=== PATIENT | female | born 1935 | race Caucasian/White ===

== ENCOUNTER 2020-07-23 17:58 | Inpatient (IN) ==
[2020-07-23] MEDS ORDERED: SODIUM CHLORIDE 0.9% 500 ML IV STA (18:49)
[2020-07-23 19:56] LABS: Basophils % 0.5 % (0.0-0.8); Eosinophils # 0.4 10*3/uL (0.0-0.87); Eosinophils % 5.7 % (0.00-10.9); Hemoglobin 10.3 GM/DL (12.0-16.0); Immature Granulocytes % 0.5 %; Immature Granulocytes Absolute 0.03 #; Lymphocytes # 1.6 10*3/uL (1.4-4.0); Lymphocytes % 23.9 % (21.3-54.2); Mean Corpuscular HGB Conc 32.2 GM/DL (32-36); Mean Corpuscular Volume 96.1 FL (87-102); Mean Platelet Volume 9.7 FL (9.6-12.0); Monocytes % 9.3 % (1.7-12.7); Neutrophils % 60.1 % (38.7-73.9); Platelet Count 181 T/CUMM (130-400); Red Blood Count 3.33 MC/CUMM (3.8-5.5); Red Cell Distribution Width 13.9 % (9.3-17.3); White Blood Count 6.5 T/CUMM (4-12)
[2020-07-23 20:07] LABS: PT Patient Result 10.8 SECS (9.8-11.9)
[2020-07-23 20:28] LABS: Alanine Aminotransferase 21 U/L (13-56); Albumin 3.2 G/DL (3.4-5.0); Alkaline Phosphatase 44 U/L (45-117); Aspartate Amino Transferase 16 U/L (0-37); Blood Urea Nitrogen 27 MG/DL (7-18); Calcium 8.8 MG/DL (8.5-10.1); Carbon Dioxide 26 MMOL/L (21-32); Estimated Glom Filtration Rate 42 ML/MIN; Glucose 117 MG/DL (74-106); Osmolality,Calculated 284.4 MOS/KG (273-304); Potassium 3.9 MMOL/L (3.5-5.1); Sodium 140 MMOL/L (136-145); Total Protein 6.2 G/DL (6.4-8.2); Troponin I < 0.015 NG/ML (0.00-0.045)
[2020-07-23 20:53] LABS: Bacteria,Urine Occasional /HPF (Few); Bilirubin,Urine Negative (Negative); Blood, Urine Negative (Negative); Glucose,Urine (UA) Negative (Negative); Hyaline Casts,Urine 5 /LPF (0-3); Ketones,Urine Negative (Negative); Nitrite,Urine Negative (Negative); Protein,Urine Negative; RBC,Urine 2 /HPF (0-4); Squamous Epithelial Cell,Urine Occasional /HPF (0-10); Urine Appearance CLEAR (Clear); Urine Color Yellow (Yellow); Urine Urobilinogen < 2.0 EU/DL (0.2-1.0); WBC,Urine 15 /HPF (0-6)
[2020-07-23 20:59] LABS: Barbiturates Screen,Urine Negative (Negative); Benzodiazepines Screen,Urine Positive (Negative); Cannabinoid Screen,Urine Negative (Negative); Opiate Screen,Urine Positive (Negative); Phencyclidine Screen,Urine Negative (Negative)
[2020-07-23] MEDS ORDERED: methylPREDNISolone SOD SUC 125 MG/2 ML VIAL IV STA (21:17)
[2020-07-23] MEDS ORDERED: diphenhydrAMINE 50 MG/1 ML VIAL IV STA (21:17)
[2020-07-23] MEDS ORDERED: GLUCAGON 1 MG VIAL IM PRN ×2 (21:40)
[2020-07-23] MEDS ORDERED: DEXTROSE 50% 25 GM/50 ML VIAL IV PRN ×2 (21:40)
[2020-07-23] MEDS ORDERED: diphenhydrAMINE CAP 25 MG CAPSULE PO PRN (21:40)
[2020-07-23] MEDS ORDERED: ACETAMINOPHEN 325 MG TABLET PO PRN (21:40)
[2020-07-23] MEDS ORDERED: ONDANSETRON 4 MG/2 ML VIAL IV PRN (21:40)
[2020-07-23] MEDS ORDERED: BISACODYL 5 MG TABLET PO PRN (21:40)
[2020-07-23] MEDS ORDERED: NICOTINE 21 MG/24 HR PATCH TRANSDERM PRN (21:40)
[2020-07-23] MEDS ORDERED: guaiFENesin/DM ER 600-30 MG TABLET PO PRN (21:40)
[2020-07-23] MEDS ORDERED: ALUMINUM/MAGNES/SIMETH MAX STR 30 ML UDCUP PO PRN (21:40)
[2020-07-23] MEDS ORDERED: hydrALAZINE 20 MG/1 ML VIAL IV PRN (21:40)
[2020-07-23] MEDS ORDERED: SIMETHICONE CHEW 125 MG TABLET PO PRN (21:40)
[2020-07-23] MEDS ORDERED: LEVOFLOXACIN INJ 750 MG in PREMIX 1 EACH IV SCH (22:00)
[2020-07-23] MEDS ORDERED: SODIUM CHLORIDE 0.9% 1,000 ML IV SCH (22:30)
[2020-07-23] MEDS ORDERED: ALBUTEROL/IPRATROPIUM 3 ML NEB RESP TX ONE (23:08)
[2020-07-24 01:06] LABS: Basophils % 0.4 % (0.0-0.8); Eosinophils # 0.1 10*3/uL (0.0-0.87); Eosinophils % 0.7 % (0.00-10.9); Hematocrit 34.8 VOL% (35.7-47.0); Hemoglobin 11.4 GM/DL (12.0-16.0); Immature Granulocytes % 0.4 %; Immature Granulocytes Absolute 0.03 #; Lymphocytes # 0.8 10*3/uL (1.4-4.0); Lymphocytes % 12.2 % (21.3-54.2); Mean Corpuscular HGB Conc 32.8 GM/DL (32-36); Mean Corpuscular Volume 96.1 FL (87-102); Neutrophils % 85.3 % (38.7-73.9); Platelet Count 207 T/CUMM (130-400); Red Blood Count 3.62 MC/CUMM (3.8-5.5); Red Cell Distribution Width 14.1 % (9.3-17.3); White Blood Count 6.7 T/CUMM (4-12)
[2020-07-24 01:08] LABS: Albumin 3.4 G/DL (3.4-5.0); Bilirubin,Total 0.5 MG/DL (0.2-1.0); Osmolality,Calculated 284.7 MOS/KG (273-304); Potassium 3.7 MMOL/L (3.5-5.1); Total Protein 6.4 G/DL (6.4-8.2)
[2020-07-24] MEDS: ALBUTEROL/IPRATROPIUM 3 ML NEB RESP TX SCH ×4 (07:29→21:10)
[2020-07-24] MEDS: LOSARTAN 50 MG TABLET PO SCH (09:04)
[2020-07-24] MEDS: predniSONE 5 MG TABLET PO SCH (09:04)
[2020-07-24] MEDS: PANTOPRAZOLE 40 MG TABLET PO SCH (09:04)
[2020-07-24] MEDS: amLODIPine 10 MG TABLET PO SCH (09:04)
[2020-07-24] MEDS: DULoxetine 30 MG CAPSULE PO SCH (09:04)
[2020-07-24] MEDS: ENOXAPARIN 30 MG/0.3 ML SYRINGE SUBCUT SCH (09:05)
[2020-07-24] MEDS: INSULIN LISPRO 100 UNIT/ML SUBCUT SCH ×4 (09:09→21:19)
[2020-07-24] MEDS: ZALEPLON 5 MG CAPSULE PO PRN (21:13)
[2020-07-25] MEDS: ALBUTEROL/IPRATROPIUM 3 ML NEB RESP TX SCH ×4 (01:36→19:34)
[2020-07-25 05:30] LABS: Basophils % 0.3 % (0.0-0.8); Eosinophils % 0.3 % (0.00-10.9); Hematocrit 31.2 VOL% (35.7-47.0); Hemoglobin 10.2 GM/DL (12.0-16.0); Immature Granulocytes % 0.6 %; Immature Granulocytes Absolute 0.07 #; Lymphocytes # 1.7 10*3/uL (1.4-4.0); Lymphocytes % 14.8 % (21.3-54.2); Mean Corpuscular HGB Conc 32.7 GM/DL (32-36); Mean Corpuscular Volume 96.6 FL (87-102); Mean Platelet Volume 9.7 FL (9.6-12.0); Monocytes % 7.7 % (1.7-12.7); Neutrophils % 76.3 % (38.7-73.9); Platelet Count 200 T/CUMM (130-400); Red Blood Count 3.23 MC/CUMM (3.8-5.5); Red Cell Distribution Width 13.9 % (9.3-17.3); White Blood Count 11.4 T/CUMM (4-12)
[2020-07-25 05:55] LABS: Calcium 8.2 MG/DL (8.5-10.1); Osmolality,Calculated 290.3 MOS/KG (273-304); Potassium 3.4 MMOL/L (3.5-5.1)
[2020-07-25 06:00] LABS: Risk Ratio 2.21; VLDL CHOLESTEROL 14.6 MG/DL
[2020-07-25] MEDS: INSULIN LISPRO 100 UNIT/ML SUBCUT SCH ×4 (09:14→20:43)
[2020-07-25] MEDS: PANTOPRAZOLE 40 MG TABLET PO SCH (09:15)
[2020-07-25] MEDS: LOSARTAN 50 MG TABLET PO SCH (09:15)
[2020-07-25] MEDS: amLODIPine 10 MG TABLET PO SCH (09:15)
[2020-07-25] MEDS: predniSONE 5 MG TABLET PO SCH (09:15)
[2020-07-25] MEDS: DULoxetine 30 MG CAPSULE PO SCH (09:15)
[2020-07-25] MEDS: ENOXAPARIN 30 MG/0.3 ML SYRINGE SUBCUT SCH (09:43)
[2020-07-25] MEDS ORDERED: POTASSIUM CHLORIDE 20 MEQ TABLET PO ONE (09:54)
[2020-07-25] MEDS: ASPIRIN EC 81 MG TABLET PO SCH (11:21)
[2020-07-25] MEDS: ZALEPLON 5 MG CAPSULE PO PRN (20:44)
[2020-07-25] MEDS: CEFUROXIME 500 MG TABLET PO SCH (20:44)
[2020-07-26] MEDS: ALBUTEROL/IPRATROPIUM 3 ML NEB RESP TX SCH ×2 (00:25→07:18)
[2020-07-26 06:03] LABS: Basophils % 0.5 % (0.0-0.8); Eosinophils # 0.3 10*3/uL (0.0-0.87); Eosinophils % 3.5 % (0.00-10.9); Hematocrit 32.9 VOL% (35.7-47.0); Hemoglobin 10.9 GM/DL (12.0-16.0); Immature Granulocytes % 0.5 %; Immature Granulocytes Absolute 0.04 #; Lymphocytes # 2.1 10*3/uL (1.4-4.0); Lymphocytes % 23.3 % (21.3-54.2); Mean Corpuscular HGB Conc 33.1 GM/DL (32-36); Mean Corpuscular Volume 94.8 FL (87-102); Mean Platelet Volume 9.5 FL (9.6-12.0); Monocytes % 8.1 % (1.7-12.7); Neutrophils % 64.1 % (38.7-73.9); Platelet Count 205 T/CUMM (130-400); Red Blood Count 3.47 MC/CUMM (3.8-5.5); Red Cell Distribution Width 14.1 % (9.3-17.3); White Blood Count 8.8 T/CUMM (4-12)
[2020-07-26 06:24] LABS: Calcium 8.8 MG/DL (8.5-10.1); Osmolality,Calculated 283.3 MOS/KG (273-304); Potassium 3.7 MMOL/L (3.5-5.1)
[2020-07-26 07:55] VITALS: BP 160/59
[2020-07-26] MEDS: ENOXAPARIN 30 MG/0.3 ML SYRINGE SUBCUT SCH (08:10)
[2020-07-26] MEDS: PANTOPRAZOLE 40 MG TABLET PO SCH (08:11)
[2020-07-26] MEDS: LOSARTAN 50 MG TABLET PO SCH (08:12)
[2020-07-26] MEDS: DULoxetine 30 MG CAPSULE PO SCH (08:13)
[2020-07-26] MEDS: predniSONE 5 MG TABLET PO SCH (08:13)
[2020-07-26] MEDS: INSULIN LISPRO 100 UNIT/ML SUBCUT SCH (08:14)
[2020-07-26] MEDS: CEFUROXIME 500 MG TABLET PO SCH (08:14)
[2020-07-26] MEDS: ASPIRIN EC 81 MG TABLET PO SCH (08:14)
[2020-07-26] MEDS: amLODIPine 10 MG TABLET PO SCH (08:16)
[2020-07-26] MEDS ORDERED: MULTIVITAMIN (CENTRUM) TABLET PO SCH (09:00)
== END 2020-07-26 10:36 | disposition home health service (06) | DRG 689 ==
LOC: N.ED 17:58 → N.EDINP 17:58 → SUATTDRO 21:40 → N.EDINP 23:55 → N.5E 07-24 00:13
PROVIDERS: ADMIT Internal Medicine; ATTEND Internal Medicine

== ENCOUNTER 2021-02-19 21:44 | Inpatient (IN) ==
[2021-02-19 22:09] LABS: Basophils % 0.4 % (0.0-0.8); Eosinophils # 0.2 10*3/uL (0.0-0.87); Eosinophils % 1.7 % (0.00-10.9); Hematocrit 31.3 VOL% (35.7-47.0); Hemoglobin 10.1 GM/DL (12.0-16.0); Immature Granulocytes % 0.6 %; Immature Granulocytes Absolute 0.06 #; Lymphocytes # 2.2 10*3/uL (1.4-4.0); Mean Corpuscular HGB Conc 32.3 GM/DL (32-36); Mean Corpuscular Volume 93.7 FL (87-102); Monocytes % 7.7 % (1.7-12.7); Neutrophils % 68.6 % (38.7-73.9); Platelet Count 166 T/CUMM (130-400); Red Blood Count 3.34 MC/CUMM (3.8-5.5); Red Cell Distribution Width 14.7 % (9.3-17.3); White Blood Count 10.4 T/CUMM (4-12)
[2021-02-19] MEDS ORDERED: MORPHINE 10 MG/1 ML VIAL IV STA (22:21)
[2021-02-19] MEDS ORDERED: MORPHINE 2 MG/1 ML SYRINGE IV STA (22:22)
[2021-02-19 22:32] LABS: Albumin 3.3 G/DL (3.4-5.0); Bilirubin,Total 0.4 MG/DL (0.20-1.00); Calcium 8.3 MG/DL (8.5-10.1); Osmolality,Calculated 286.5 MOS/KG (273-304); Potassium 4.3 MMOL/L (3.5-5.1); Total Protein 5.8 G/DL (6.4-8.2)
[2021-02-19] MEDS ORDERED: PANTOPRAZOLE 40 MG VIAL IV STA (22:38)
[2021-02-19] MEDS ORDERED: ALUM/MAG/SIMETH/LIDO VISC 1:1 30 ML BOTTLE PO STA (22:38)
[2021-02-19] MEDS ORDERED: SODIUM CHLORIDE 0.9% 500 ML IV STA (22:56)
[2021-02-19] MEDS ORDERED: NITROGLYCERIN SL 0.4 MG TABLET SL PRN (23:06)
[2021-02-19] MEDS ORDERED: METHOCARBAMOL 750 MG TABLET PO PRN (23:07)
[2021-02-19] MEDS ORDERED: DEXTROSE 50% 25 GM/50 ML VIAL IV PRN (23:09)
[2021-02-19] MEDS ORDERED: GLUCAGON 1 MG VIAL IM PRN (23:09)
[2021-02-20] MEDS ORDERED: DEXTROSE 50% 25 GM/50 ML VIAL IV PRN ×3 (00:09→13:42)
[2021-02-20] MEDS ORDERED: ONDANSETRON 4 MG/2 ML VIAL IV PRN (00:09)
[2021-02-20] MEDS ORDERED: ACETAMINOPHEN 325 MG TABLET PO PRN (00:09)
[2021-02-20] MEDS ORDERED: GLUCAGON 1 MG VIAL IM PRN ×3 (00:09→13:42)
[2021-02-20] MEDS ORDERED: MORPHINE 2 MG/1 ML SYRINGE IV PRN (00:09)
[2021-02-20] MEDS ORDERED: guaiFENesin/DM ER 600-30 MG TABLET PO PRN (00:09)
[2021-02-20] MEDS ORDERED: hydrALAZINE 20 MG/1 ML VIAL IV PRN (00:09)
[2021-02-20] MEDS ORDERED: ZALEPLON 5 MG CAPSULE PO PRN (00:09)
[2021-02-20] MEDS ORDERED: diphenhydrAMINE CAP 25 MG CAPSULE PO PRN (00:09)
[2021-02-20] MEDS ORDERED: NICOTINE 21 MG/24 HR PATCH TRANSDERM PRN (00:09)
[2021-02-20] MEDS ORDERED: ALBUTEROL/IPRATROPIUM 3 ML NEB RESP TX PRN (00:09)
[2021-02-20] MEDS ORDERED: DOCUSATE SODIUM 100 MG CAPSULE PO PRN (00:09)
[2021-02-20 05:30] LABS: Basophils % 0.5 % (0.0-0.8); Eosinophils # 0.1 10*3/uL (0.0-0.87); Eosinophils % 1.3 % (0.00-10.9); Hematocrit 33.8 VOL% (35.7-47.0); Hemoglobin 10.8 GM/DL (12.0-16.0); Immature Granulocytes % 0.4 %; Immature Granulocytes Absolute 0.03 #; Lymphocytes # 1.8 10*3/uL (1.4-4.0); Lymphocytes % 20.8 % (21.3-54.2); Mean Corpuscular Volume 94.9 FL (87-102); Mean Platelet Volume 9.8 FL (9.6-12.0); Monocytes % 7.1 % (1.7-12.7); Neutrophils % 69.9 % (38.7-73.9); Platelet Count 179 T/CUMM (130-400); Red Blood Count 3.56 MC/CUMM (3.8-5.5); Red Cell Distribution Width 14.8 % (9.3-17.3); White Blood Count 8.6 T/CUMM (4-12)
[2021-02-20 05:55] LABS: Albumin 3.4 G/DL (3.4-5.0); Bilirubin,Total 0.9 MG/DL (0.20-1.00); Calcium 8.7 MG/DL (8.5-10.1); Osmolality,Calculated 284.4 MOS/KG (273-304); Potassium 4.4 MMOL/L (3.5-5.1); Total Protein 6.2 G/DL (6.4-8.2)
[2021-02-20] MEDS ORDERED: INSULIN LISPRO 100 UNIT/ML SUBCUT SCH (07:30)
[2021-02-20] MEDS ORDERED: MAGNESIUM SULF RIDER 2 GM/50 ML PREMIX IV PRN (07:35)
[2021-02-20] MEDS ORDERED: POTASSIUM CHLORIDE RIDER 10 MEQ/100 ML PREMIX IV PRN (07:35)
[2021-02-20] MEDS ORDERED: ENOXAPARIN 60 MG/0.6 ML SYRINGE SUBCUT SCH (08:30)
[2021-02-20] MEDS ORDERED: amLODIPine 10 MG TABLET PO SCH (09:00)
[2021-02-20] MEDS ORDERED: LOSARTAN 50 MG TABLET PO SCH (09:00)
[2021-02-20] MEDS ORDERED: PANTOPRAZOLE 40 MG TABLET PO SCH (09:00)
[2021-02-20 09:18] LABS: Risk Ratio 2.28; VLDL Cholesterol 17.8 MG/DL
[2021-02-20] MEDS: INSULIN LISPRO 100 UNIT/ML SUBCUT SCH ×3 (11:32→21:51)
[2021-02-20] MEDS: PANTOPRAZOLE 40 MG TABLET PO SCH (11:33)
[2021-02-20] MEDS: ASPIRIN EC 81 MG TABLET PO SCH (11:33)
[2021-02-20] MEDS: DULoxetine 30 MG CAPSULE PO SCH (11:34)
[2021-02-20] MEDS: METOPROLOL TARTRATE 25 MG TABLET PO SCH ×2 (11:34→21:45)
[2021-02-20] MEDS: MULTIVITAMIN (CENTRUM) TABLET PO SCH (11:34)
[2021-02-20] MEDS: PRAZOSIN 1 MG CAPSULE PO SCH ×2 (11:34→21:45)
[2021-02-20] MEDS: GABAPENTIN 100 MG CAPSULE PO SCH ×2 (11:34→21:45)
[2021-02-20] MEDS: CHOLECALCIFEROL 1,000 UNIT TABLET PO SCH (11:35)
[2021-02-20] MEDS: OXYBUTYNIN XL 5 MG TABLET PO SCH (11:39)
[2021-02-20] MEDS: predniSONE 5 MG TABLET PO SCH (11:39)
[2021-02-20] MEDS: FAMOTIDINE 20 MG/2 ML VIAL IV SCH ×2 (11:44→21:45)
[2021-02-20] MEDS: SODIUM CHLORIDE 0.9% 1,000 ML IV SCH (11:48)
[2021-02-20] MEDS ORDERED: DIAZEPAM 5 MG TABLET PO ONE (12:30)
[2021-02-20] MEDS ORDERED: diphenhydrAMINE CAP 50 MG CAPSULE PO ONE (12:30)
[2021-02-20] MEDS ORDERED: VERAPAMIL 5 MG/2 ML VIAL ONE (12:31)
[2021-02-20] MEDS ORDERED: NITROGLYCERIN DRIP 50 MG/250 ML BOTTLE IV ONE (12:31)
[2021-02-20] MEDS ORDERED: fentaNYL 100 MCG/2 ML VIAL ONE (12:43)
[2021-02-20] MEDS ORDERED: MIDAZOLAM 2 MG/2 ML VIAL ONE (12:43)
[2021-02-20] MEDS ORDERED: ENOXAPARIN 30 MG/0.3 ML SYRINGE ONE (13:31)
[2021-02-20 15:12] LABS: Bilirubin,Urine Negative (Negative); Blood, Urine Negative (Negative); Glucose,Urine (UA) Negative (Negative); Ketones,Urine Negative (Negative); Nitrite,Urine Negative (Negative); Protein,Urine Negative; RBC,Urine 2 /HPF (0-4); Urine Appearance CLEAR (Clear); Urine Color Yellow (Yellow); Urine Specific Gravity 1.018 (1.001-1.035); Urine Urobilinogen < 2.0 EU/DL (0.2-1.0)
[2021-02-20] MEDS ORDERED: diphenhydrAMINE CAP 25 MG CAPSULE PO SCH (21:00)
[2021-02-20] MEDS: ATORVASTATIN 40 MG TABLET PO SCH (21:44)
[2021-02-21] MEDS: SODIUM CHLORIDE 0.9% 1,000 ML IV SCH ×3 (04:29→16:25)
[2021-02-21 06:33] LABS: Basophils # 0.1 10*3/uL (0.0-0.2); Basophils % 0.6 % (0.0-0.8); Eosinophils # 0.3 10*3/uL (0.0-0.87); Eosinophils % 2.9 % (0.00-10.9); Hematocrit 32.2 VOL% (35.7-47.0); Hemoglobin 10.1 GM/DL (12.0-16.0); Immature Granulocytes % 0.5 %; Immature Granulocytes Absolute 0.04 #; Lymphocytes # 1.3 10*3/uL (1.4-4.0); Lymphocytes % 15.5 % (21.3-54.2); Mean Corpuscular HGB Conc 31.4 GM/DL (32-36); Mean Corpuscular Volume 95.5 FL (87-102); Mean Platelet Volume 10.7 FL (9.6-12.0); Monocytes % 7.2 % (1.7-12.7); Neutrophils % 73.3 % (38.7-73.9); Platelet Count 165 T/CUMM (130-400); Red Blood Count 3.37 MC/CUMM (3.8-5.5); Red Cell Distribution Width 14.9 % (9.3-17.3); White Blood Count 8.6 T/CUMM (4-12)
[2021-02-21 06:58] LABS: Calcium 8.4 MG/DL (8.5-10.1); Osmolality,Calculated 277.7 MOS/KG (273-304); Potassium 4.2 MMOL/L (3.5-5.1)
[2021-02-21] MEDS ORDERED: ENOXAPARIN 40 MG/0.4 ML SYRINGE SUBCUT SCH (08:00)
[2021-02-21] MEDS: INSULIN LISPRO 100 UNIT/ML SUBCUT SCH ×3 (09:34→17:09)
[2021-02-21] MEDS: PRAZOSIN 1 MG CAPSULE PO SCH ×2 (09:45→21:48)
[2021-02-21] MEDS: ASPIRIN EC 81 MG TABLET PO SCH (09:45)
[2021-02-21] MEDS: DULoxetine 30 MG CAPSULE PO SCH (09:45)
[2021-02-21] MEDS: MULTIVITAMIN (CENTRUM) TABLET PO SCH (09:46)
[2021-02-21] MEDS: OXYBUTYNIN XL 5 MG TABLET PO SCH (09:51)
[2021-02-21] MEDS: CHOLECALCIFEROL 1,000 UNIT TABLET PO SCH (09:51)
[2021-02-21] MEDS: PANTOPRAZOLE 40 MG TABLET PO SCH (09:51)
[2021-02-21] MEDS: GABAPENTIN 100 MG CAPSULE PO SCH ×2 (09:51→21:49)
[2021-02-21] MEDS ORDERED: DEXTROSE 50% 25 GM/50 ML VIAL IV PRN (09:51)
[2021-02-21] MEDS: OLMESARTAN 20 MG TABLET PO SCH (09:51)
[2021-02-21] MEDS: METOPROLOL TARTRATE 25 MG TABLET PO SCH ×2 (09:51→21:49)
[2021-02-21] MEDS ORDERED: GLUCAGON 1 MG VIAL IM PRN (09:51)
[2021-02-21] MEDS ORDERED: SODIUM CHLORIDE 0.9% 1,000 ML IV SCH (10:00)
[2021-02-21] MEDS: ATORVASTATIN 40 MG TABLET PO SCH (21:48)
[2021-02-21] MEDS: CHLORHEXIDINE 0.12% ORAL RINSE 60 ML BOTTLE SWISH/SPIT SCH (21:49)
[2021-02-22 04:22] LABS: ABG Base Excess 2.1 MMOL/L (-2.5-2.5); ABG HCO3 26.2 MMOL/L (20-26); ABG Oxygen Saturation 95.3 % (95-100); ABG PCO2 39.1 MM HG (35-48); ABG PH 7.436 (7.35-7.45); ABG TCO2 23.8 MMOL/L (23-27)
[2021-02-22 04:32] LABS: Basophils % 0.5 % (0.0-0.8); Eosinophils # 0.4 10*3/uL (0.0-0.87); Eosinophils % 4.2 % (0.00-10.9); Hematocrit 32.7 VOL% (35.7-47.0); Hemoglobin 10.5 GM/DL (12.0-16.0); Immature Granulocytes % 0.5 %; Immature Granulocytes Absolute 0.04 #; Lymphocytes # 1.6 10*3/uL (1.4-4.0); Lymphocytes % 17.8 % (21.3-54.2); Mean Corpuscular HGB Conc 32.1 GM/DL (32-36); Mean Corpuscular Volume 94.8 FL (87-102); Mean Platelet Volume 10.2 FL (9.6-12.0); Monocytes % 6.8 % (1.7-12.7); Neutrophils % 70.2 % (38.7-73.9); Platelet Count 159 T/CUMM (130-400); Red Blood Count 3.45 MC/CUMM (3.8-5.5); Red Cell Distribution Width 14.6 % (9.3-17.3); White Blood Count 8.8 T/CUMM (4-12)
[2021-02-22 04:53] LABS: Albumin 2.8 G/DL (3.4-5.0); Bilirubin,Total 0.4 MG/DL (0.20-1.00); Calcium 8.3 MG/DL (8.5-10.1); Potassium 4.1 MMOL/L (3.5-5.1); Total Protein 5.5 G/DL (6.4-8.2)
[2021-02-22] MEDS: SODIUM CHLORIDE 0.9% 1,000 ML IV SCH ×3 (05:52→16:03)
[2021-02-22] MEDS: INSULIN LISPRO 100 UNIT/ML SUBCUT SCH ×4 (05:52→16:04)
[2021-02-22] MEDS: DULoxetine 30 MG CAPSULE PO SCH (08:57)
[2021-02-22] MEDS: OXYBUTYNIN XL 5 MG TABLET PO SCH (08:57)
[2021-02-22] MEDS: OLMESARTAN 20 MG TABLET PO SCH (08:58)
[2021-02-22] MEDS: GABAPENTIN 100 MG CAPSULE PO SCH ×2 (08:58→21:09)
[2021-02-22] MEDS: METOPROLOL TARTRATE 25 MG TABLET PO SCH ×2 (08:58→21:09)
[2021-02-22] MEDS: MULTIVITAMIN (CENTRUM) TABLET PO SCH (08:58)
[2021-02-22] MEDS: PANTOPRAZOLE 40 MG TABLET PO SCH (08:58)
[2021-02-22] MEDS: ASPIRIN EC 81 MG TABLET PO SCH (08:58)
[2021-02-22] MEDS: CHOLECALCIFEROL 1,000 UNIT TABLET PO SCH (08:58)
[2021-02-22] MEDS: PRAZOSIN 1 MG CAPSULE PO SCH ×2 (08:58→21:09)
[2021-02-22] MEDS: predniSONE 5 MG TABLET PO SCH (09:05)
[2021-02-22] MEDS: CHLORHEXIDINE 0.12% ORAL RINSE 60 ML BOTTLE SWISH/SPIT SCH ×2 (09:06→21:13)
[2021-02-22] MEDS ORDERED: ALPRAZolam 0.5 MG TABLET PO PRN (09:33)
[2021-02-22] MEDS: CHLORHEXIDINE 4% SOLN 118 ML BOTTLE TOP SCH ×2 (16:09→21:10)
[2021-02-22] MEDS: ATORVASTATIN 40 MG TABLET PO SCH (21:09)
[2021-02-23] MEDS ORDERED: PAPAVERINE 60 MG/2 ML VIAL ONE (04:22)
[2021-02-23] MEDS ORDERED: VANCOMYCIN 1,000 MG VIAL ONE ×2 (04:22→06:55)
[2021-02-23] MEDS ORDERED: VANCOMYCIN 500 MG VIAL ONE (04:22)
[2021-02-23] MEDS ORDERED: PHENYLEPHRINE DRIP 20 MG/250 ML PREMIX IV ONE (05:25)
[2021-02-23] MEDS ORDERED: LIDOCAINE 2% 5 ML VIAL ONE ×2 (05:42→10:37)
[2021-02-23] MEDS ORDERED: CALCIUM CHLORIDE 1,000 MG/10 ML VIAL IV ONE ×2 (05:42→05:43)
[2021-02-23] MEDS ORDERED: ETOMIDATE 40 MG/20 ML VIAL IV ONE (05:42)
[2021-02-23] MEDS ORDERED: VECURONIUM 10 MG VIAL IV ONE ×4 (05:42)
[2021-02-23] MEDS ORDERED: SUFentanil 250 MCG/5 ML AMP ONE (05:43)
[2021-02-23] MEDS ORDERED: MIDAZOLAM 10 MG/2 ML VIAL ONE (05:43)
[2021-02-23] MEDS ORDERED: SODIUM CHLORIDE 0.9% 250 ML IV ONE (05:51)
[2021-02-23] MEDS ORDERED: LACTATED RINGERS 1,000 ML IV ONE (05:51)
[2021-02-23] MEDS ORDERED: HEPARIN/NACL 0.9% 2 UNITS/ML 1,000 UNIT/500 ML BAG IV ONE (05:51)
[2021-02-23] MEDS ORDERED: SODIUM CHLORIDE 0.9% 1,000 ML IV ONE (05:51)
[2021-02-23] MEDS ORDERED: AMINOCAPROIC ACID 5,000 MG/20 ML VIAL ONE ×4 (05:52)
[2021-02-23] MEDS ORDERED: DIAZEPAM 5 MG TABLET PO ONE (05:56)
[2021-02-23] MEDS: INSULIN LISPRO 100 UNIT/ML SUBCUT SCH ×3 (06:00→13:35)
[2021-02-23] MEDS: SODIUM CHLORIDE 0.9% 1,000 ML IV SCH ×2 (06:01→08:14)
[2021-02-23] MEDS ORDERED: ePHEDrine 50 MG/ML VIAL ONE (06:01)
[2021-02-23 07:20] LABS: Basophils % 0.3 % (0.0-0.8); Eosinophils # 0.3 10*3/uL (0.0-0.87); Eosinophils % 2.8 % (0.00-10.9); Hematocrit 36.1 VOL% (35.7-47.0); Hemoglobin 11.8 GM/DL (12.0-16.0); Immature Granulocytes % 0.7 %; Immature Granulocytes Absolute 0.07 #; Lymphocytes # 1.3 10*3/uL (1.4-4.0); Lymphocytes % 12.8 % (21.3-54.2); Mean Corpuscular HGB Conc 32.7 GM/DL (32-36); Mean Corpuscular Volume 94.8 FL (87-102); Mean Platelet Volume 11.5 FL (9.6-12.0); Monocytes % 5.7 % (1.7-12.7); Neutrophils % 77.7 % (38.7-73.9); Platelet Count 123 T/CUMM (130-400); Red Blood Count 3.81 MC/CUMM (3.8-5.5); Red Cell Distribution Width 14.5 % (9.3-17.3); White Blood Count 9.8 T/CUMM (4-12)
[2021-02-23 07:23] LABS: Calcium 9.1 MG/DL (8.5-10.1); Osmolality,Calculated 283.3 MOS/KG (273-304); Potassium 3.9 MMOL/L (3.5-5.1)
[2021-02-23] MEDS ORDERED: VANCOMYCIN INJ 1,000 MG in SODIUM CHLORIDE 0.9% 250 ML IV ONE (07:30)
[2021-02-23 07:44] LABS: ABG Base Excess 1.1 MMOL/L (-2.5-2.5); ABG HCO3 25.4 MMOL/L (20-26); ABG Oxygen Saturation 99.9 % (95-100); ABG PCO2 35.6 MM HG (35-48); ABG PH 7.451 (7.35-7.45); ABG TCO2 22.6 MMOL/L (23-27); Glucose Heart Surgery 123 MG/DL (74-106); Hematocrit Heart Surgery 29.2 PERCENT (37-47); Hemoglobin Heart Surgery 9.4 G/DL (12.0-16.0); Ionized Calcium Arterial 1.13 MMOL/L (1.21-1.46); PCO2 Patient Temp Arterial 35.6 MMHG; PH Patient Temp Arterial 7.451; Patient Temperature 37 CELCIUS; Potassium Heart/CVR 3.3 MMOL/L (3.5-5.1); Sodium Heart/CVR 143 MMOL/L (135-145)
[2021-02-23 07:50] LABS: Bacteria,Urine Occasional /HPF (Few); Bilirubin,Urine Negative (Negative); Blood, Urine Small mg/dL (Negative); Glucose,Urine (UA) Negative (Negative); Ketones,Urine Negative (Negative); Nitrite,Urine Negative (Negative); Protein,Urine Negative; RBC,Urine 2 /HPF (0-4); Urine Appearance CLEAR (Clear); Urine Color Straw (Yellow); Urine Specific Gravity 1.004 (1.001-1.035); Urine Urobilinogen < 2.0 EU/DL (0.2-1.0)
[2021-02-23 08:05] LABS: Anisocytosis 1+; Macrocytosis Slight; Platelet Estimate Adequate
[2021-02-23] MEDS: OLMESARTAN 20 MG TABLET PO SCH (08:14)
[2021-02-23] MEDS: DULoxetine 30 MG CAPSULE PO SCH (08:14)
[2021-02-23] MEDS: predniSONE 5 MG TABLET PO SCH (08:14)
[2021-02-23] MEDS: PANTOPRAZOLE 40 MG TABLET PO SCH (08:14)
[2021-02-23] MEDS: ASPIRIN EC 81 MG TABLET PO SCH (08:14)
[2021-02-23] MEDS: MULTIVITAMIN (CENTRUM) TABLET PO SCH (08:14)
[2021-02-23] MEDS: CHLORHEXIDINE 4% SOLN 118 ML BOTTLE TOP SCH (08:15)
[2021-02-23] MEDS: GABAPENTIN 100 MG CAPSULE PO SCH (08:15)
[2021-02-23] MEDS: OXYBUTYNIN XL 5 MG TABLET PO SCH (08:15)
[2021-02-23] MEDS: PRAZOSIN 1 MG CAPSULE PO SCH (08:15)
[2021-02-23] MEDS: CHLORHEXIDINE 0.12% ORAL RINSE 60 ML BOTTLE SWISH/SPIT SCH ×2 (08:15→21:22)
[2021-02-23] MEDS: CHOLECALCIFEROL 1,000 UNIT TABLET PO SCH (08:15)
[2021-02-23] MEDS: METOPROLOL TARTRATE 25 MG TABLET PO SCH (08:15)
[2021-02-23] MEDS ORDERED: ALBUMIN 5% 25.0 GM/500 ML VIAL IV ONE (08:17)
[2021-02-23] MEDS ORDERED: POTASSIUM CHLORIDE RIDER 20 MEQ/100 ML PREMIX IV ONE (08:17)
[2021-02-23] MEDS ORDERED: PHENYLEPHRINE DRIP 40 MG/250 ML PREMIX IV ONE (08:17)
[2021-02-23] MEDS ORDERED: MIDAZOLAM 2 MG/2 ML VIAL ONE (08:50)
[2021-02-23 09:06] LABS: Hematocrit Heart Surgery 25.3 PERCENT (37-47); Hemoglobin Heart Surgery 8.1 G/DL (12.0-16.0); PCO2 Patient Temp Venous 34.2 MM HG; PH Patient Temp Venous 7.505; PO2 Patient Temp Venous 38.5 MM HG; Potassium Heart/CVR 3.6 MMOL/L (3.5-5.1); VBG HCO3 27.9 MEQ/L (24-28); VBG Oxygen Saturation 85.2 %; VBG PCO2 39.5 MMHG (41-51); VBG PH 7.46; VBG PO2 47.3 MMHG (17-40); VBG Total CO2 26.2 MMOL/L
[2021-02-23 09:41] LABS: Hematocrit Heart Surgery 25.9 PERCENT (37-47); Hemoglobin Heart Surgery 8.3 G/DL (12.0-16.0); PCO2 Patient Temp Venous 33.2 MM HG; PH Patient Temp Venous 7.51; Potassium Heart/CVR 3.7 MMOL/L (3.5-5.1); VBG Base Excess 3.7 MEQ/L (0-4); VBG HCO3 27.5 MEQ/L (24-28); VBG Oxygen Saturation 86.8 %; VBG PCO2 38.4 MMHG (41-51); VBG PH 7.464; VBG PO2 49.1 MMHG (17-40); VBG Total CO2 25.6 MMOL/L
[2021-02-23] MEDS ORDERED: THROMBIN TOPICAL (RECOMBINANT) 5,000 UNIT VIAL TOP ONE (09:55)
[2021-02-23 10:30] LABS: ABG Base Excess 2.7 MMOL/L (-2.5-2.5); ABG HCO3 26.8 MMOL/L (20-26); ABG Oxygen Saturation 99.9 % (95-100); ABG PCO2 35.7 MM HG (35-48); ABG PH 7.473 (7.35-7.45); ABG TCO2 24.2 MMOL/L (23-27); Glucose Heart Surgery 265 MG/DL (74-106); Hematocrit Heart Surgery 26.4 PERCENT (37-47); Hemoglobin Heart Surgery 8.5 G/DL (12.0-16.0); Ionized Calcium Arterial 1.18 MMOL/L (1.21-1.46); PCO2 Patient Temp Arterial 35.7 MMHG; PH Patient Temp Arterial 7.473; Patient Temperature 37 CELCIUS; Potassium Heart/CVR 3.4 MMOL/L (3.5-5.1); Sodium Heart/CVR 138 MMOL/L (135-145)
[2021-02-23] MEDS ORDERED: SEVOFLURANE 1 UNIT/15 MINUTE INH ONE ×3 (10:35→11:27)
[2021-02-23] MEDS ORDERED: ALBUMIN 25% 25 GM/100 ML VIAL IV ONE (10:37)
[2021-02-23] MEDS ORDERED: MAGNESIUM SULFATE 5 GM/10 ML VIAL IV ONE (10:37)
[2021-02-23] MEDS ORDERED: methylPREDNISolone SOD SUC 1,000 MG/8 ML VIAL ONE (10:38)
[2021-02-23] MEDS ORDERED: HEPARIN 10,000 UNIT/10 ML VIAL ONE (10:38)
[2021-02-23] MEDS ORDERED: DEXTROSE 5% KCL 20 MEQ 20 MEQ/1,000 ML BAG IV ONE (10:38)
[2021-02-23] MEDS ORDERED: PROTAMINE SULFATE 250 MG/25 ML VIAL IV ONE (10:38)
[2021-02-23] MEDS ORDERED: MANNITOL 12.5 GM/50 ML VIAL IV ONE (10:38)
[2021-02-23] MEDS ORDERED: SODIUM BICARBONATE 50 MEQ/50 ML VIAL IV ONE (10:39)
[2021-02-23] MEDS ORDERED: POTASSIUM CHLORIDE 20 MEQ/10 ML VIAL ONE (10:39)
[2021-02-23] MEDS ORDERED: NITROGLYCERIN DRIP 50 MG/250 ML BOTTLE IV ONE (10:39)
[2021-02-23] MEDS ORDERED: PROTAMINE SULFATE 50 MG/5 ML VIAL IV ONE (10:39)
[2021-02-23] MEDS ORDERED: FUROSEMIDE 20 MG/2 ML VIAL ONE (10:39)
[2021-02-23] MEDS: LACTATED RINGERS 250 ML IV PRN ×11 (11:45→19:25)
[2021-02-23] MEDS: SODIUM CHLORIDE 0.45% 1,000 ML IV SCH (11:45)
[2021-02-23] MEDS: ALBUMIN 5% 12.5 GM/250 ML VIAL IV PRN ×4 (12:01→16:46)
[2021-02-23] MEDS ORDERED: MIDAZOLAM 10 MG/2 ML VIAL IV PRN (12:10)
[2021-02-23] MEDS ORDERED: ONDANSETRON 4 MG/2 ML VIAL IV PRN (12:10)
[2021-02-23] MEDS ORDERED: PHENYLEPHRINE DRIP 40 MG/250 ML PREMIX IV PRN (12:10)
[2021-02-23] MEDS ORDERED: INSULIN REGULAR DRIP 100 ML IV SCH (12:10)
[2021-02-23] MEDS ORDERED: MAGNESIUM SULF RIDER 2 GM/50 ML PREMIX IV PRN (12:10)
[2021-02-23] MEDS ORDERED: MIDAZOLAM 2 MG/2 ML VIAL IV PRN (12:10)
[2021-02-23] MEDS ORDERED: INSULIN REGULAR 100 UNIT/ML IV ONE (12:10)
[2021-02-23] MEDS ORDERED: NITROPRUSSIDE 100 MG in DEXTROSE 5% 250 ML IV PRN (12:10)
[2021-02-23] MEDS ORDERED: SODIUM CHLORIDE 0.45% 1,000 ML IV SCH ×2 (12:10)
[2021-02-23] MEDS ORDERED: DEXTROSE 50% 25 GM/50 ML VIAL IV PRN ×2 (12:10)
[2021-02-23] MEDS ORDERED: MAGNESIUM SULF RIDER 4 GM/100 ML PREMIX IV PRN (12:10)
[2021-02-23] MEDS ORDERED: INSULIN REGULAR 100 UNIT/ML IV PRN (12:10)
[2021-02-23] MEDS ORDERED: CALCIUM CHLORIDE 1,000 MG/10 ML SYRINGE IV PRN (12:10)
[2021-02-23] MEDS ORDERED: ACETAMINOPHEN 650 MG SUPP RECTAL PRN (12:10)
[2021-02-23] MEDS ORDERED: VECURONIUM 10 MG VIAL IV PRN ×2 (12:10)
[2021-02-23 12:13] LABS: ABG Base Excess 3.5 MMOL/L (-2.5-2.5); ABG HCO3 27.5 MMOL/L (20-26); ABG Oxygen Saturation 97.7 % (95-100); ABG PH 7.465 (7.35-7.45); ABG TCO2 24.5 MMOL/L (23-27); Glucose Heart Surgery 243 MG/DL (74-106); Hematocrit Heart Surgery 33.4 PERCENT (37-47); Hemoglobin Heart Surgery 10.8 G/DL (12.0-16.0); Potassium Heart/CVR 3.5 MMOL/L (3.5-5.1)
[2021-02-23 12:20] LABS: Basophils % 0.2 % (0.0-0.8); Eosinophils # 0.1 10*3/uL (0.0-0.87); Eosinophils % 0.8 % (0.00-10.9); Hematocrit 31.9 VOL% (35.7-47.0); Hemoglobin 10.7 GM/DL (12.0-16.0); Immature Granulocytes % 0.9 %; Immature Granulocytes Absolute 0.13 #; Lymphocytes # 0.8 10*3/uL (1.4-4.0); Lymphocytes % 5.7 % (21.3-54.2); Mean Corpuscular HGB Conc 33.5 GM/DL (32-36); Mean Corpuscular Volume 89.1 FL (87-102); Mean Platelet Volume 10.1 FL (9.6-12.0); Monocytes % 3.7 % (1.7-12.7); Neutrophils % 88.7 % (38.7-73.9); Platelet Count 116 T/CUMM (130-400); Red Blood Count 3.58 MC/CUMM (3.8-5.5); Red Cell Distribution Width 15.4 % (9.3-17.3)
[2021-02-23 12:22] LABS: White Blood Count 14.9 T/CUMM (4-12)
[2021-02-23 12:31] LABS: INR 1.1; Partial Thromboplastin Time 25.4 SECS (23.8-32.1)
[2021-02-23 12:38] LABS: CKMB % 9.8 %
[2021-02-23 12:41] LABS: High Sensitive Troponin I* 10969.6 ng/L (0-54)
[2021-02-23] MEDS: POTASSIUM CHLORIDE RIDER 20 MEQ/100 ML PREMIX IV PRN ×4 (12:45→21:21)
[2021-02-23 12:49] LABS: Albumin 3.3 G/DL (3.4-5.0); Bilirubin,Total 1.1 MG/DL (0.20-1.00); Calcium 9.2 MG/DL (8.5-10.1); Osmolality,Calculated 286.5 MOS/KG (273-304); Potassium 3.4 MMOL/L (3.5-5.1); Total Protein 5.9 G/DL (6.4-8.2)
[2021-02-23 14:15] LABS: ABG Base Excess 3.5 MMOL/L (-2.5-2.5); ABG HCO3 27.6 MMOL/L (20-26); ABG Oxygen Saturation 98.1 % (95-100); ABG PCO2 35.6 MM HG (35-48); ABG PH 7.486 (7.35-7.45); ABG PO2 98.2 MM HG (80-95); ABG TCO2 24.3 MMOL/L (23-27); Glucose Heart Surgery 223 MG/DL (74-106); Hematocrit Heart Surgery 30.9 PERCENT (37-47); Potassium Heart/CVR 3.7 MMOL/L (3.5-5.1)
[2021-02-23] MEDS: KETOROLAC 15 MG/1 ML VIAL IV SCH ×3 (14:22→23:42)
[2021-02-23] MEDS: POTASSIUM CHLORIDE RIDER 10 MEQ/100 ML PREMIX IV PRN ×3 (15:00→21:52)
[2021-02-23] MEDS: MORPHINE 10 MG/1 ML VIAL IV PRN ×2 (15:02→22:54)
[2021-02-23 17:05] LABS: ABG Base Excess 1.7 MMOL/L (-2.5-2.5); ABG Oxygen Saturation 98.4 % (95-100); ABG PCO2 42.3 MM HG (35-48); ABG PH 7.406 (7.35-7.45); ABG TCO2 24.7 MMOL/L (23-27); Glucose Heart Surgery 169 MG/DL (74-106); Hematocrit Heart Surgery 25.8 PERCENT (37-47); Hemoglobin Heart Surgery 8.3 G/DL (12.0-16.0); Potassium Heart/CVR 3.5 MMOL/L (3.5-5.1)
[2021-02-23 21:05] LABS: ABG Base Excess 3.2 MMOL/L (-2.5-2.5); ABG HCO3 27.4 MMOL/L (20-26); ABG Oxygen Saturation 96.6 % (95-100); ABG PCO2 39.9 MM HG (35-48); ABG PH 7.454 (7.35-7.45); ABG PO2 92.9 MM HG (80-95); ABG TCO2 28.6 MMOL/L (23-27); Glucose Heart Surgery 84 MG/DL (74-106); Hemoglobin Heart Surgery 9.9 G/DL (12.0-16.0); Potassium Heart/CVR 3.8 MMOL/L (3.5-5.1)
[2021-02-23] MEDS ORDERED: FUROSEMIDE 40 MG/4 ML VIAL IV ONE (22:03)
[2021-02-23 22:16] LABS: ABG Base Excess 2.9 MMOL/L (-2.5-2.5); ABG Oxygen Saturation 98.2 % (95-100); ABG PCO2 41.4 MM HG (35-48); Glucose Heart Surgery 141 MG/DL (74-106); Hematocrit Heart Surgery 30.1 PERCENT (37-47); Hemoglobin Heart Surgery 9.7 G/DL (12.0-16.0); Potassium Heart/CVR 5.2 MMOL/L (3.5-5.1)
[2021-02-23] MEDS ORDERED: INSULIN REGULAR 100 UNIT/ML SUBCUT SCH (22:30)
[2021-02-23 23:22] LABS: ABG Base Excess 2.4 MMOL/L (-2.5-2.5); ABG HCO3 26.5 MMOL/L (20-26); ABG Oxygen Saturation 96.2 % (95-100); ABG PCO2 44.4 MM HG (35-48); ABG PH 7.401 (7.35-7.45); ABG PO2 83.6 MM HG (80-95); ABG TCO2 25.1 MMOL/L (23-27); Glucose Heart Surgery 153 MG/DL (74-106); Potassium Heart/CVR 4.6 MMOL/L (3.5-5.1)
[2021-02-23] MEDS: VANCOMYCIN INJ 1,000 MG in SODIUM CHLORIDE 0.9% 250 ML IV SCH (23:42)
[2021-02-23] MEDS: INSULIN REGULAR 100 UNIT/ML SUBCUT SCH (23:42)
[2021-02-24] MEDS: LACTATED RINGERS 250 ML IV PRN (01:45)
[2021-02-24 04:16] LABS: ABG Base Excess 2.5 MMOL/L (-2.5-2.5); ABG HCO3 26.6 MMOL/L (20-26); ABG Oxygen Saturation 97.4 % (95-100); ABG PCO2 44.8 MM HG (35-48); ABG PH 7.399 (7.35-7.45); ABG PO2 92.4 MM HG (80-95); ABG TCO2 25.4 MMOL/L (23-27); Glucose Heart Surgery 127 MG/DL (74-106); Hematocrit Heart Surgery 29.6 PERCENT (37-47); Hemoglobin Heart Surgery 9.6 G/DL (12.0-16.0); Potassium Heart/CVR 4.3 MMOL/L (3.5-5.1)
[2021-02-24] MEDS: INSULIN REGULAR 100 UNIT/ML SUBCUT SCH ×5 (04:17→17:27)
[2021-02-24 04:36] LABS: Basophils % 0.1 % (0.0-0.8); Hematocrit 29.1 VOL% (35.7-47.0); Hemoglobin 9.4 GM/DL (12.0-16.0); Immature Granulocytes % 0.7 %; Immature Granulocytes Absolute 0.12 #; Lymphocytes # 0.7 10*3/uL (1.4-4.0); Lymphocytes % 4.1 % (21.3-54.2); Mean Corpuscular HGB Conc 32.3 GM/DL (32-36); Mean Corpuscular Volume 90.7 FL (87-102); Monocytes % 3.7 % (1.7-12.7); Neutrophils % 91.4 % (38.7-73.9); Platelet Count 95 T/CUMM (130-400); Red Blood Count 3.21 MC/CUMM (3.8-5.5); Red Cell Distribution Width 15.8 % (9.3-17.3); White Blood Count 16.5 T/CUMM (4-12)
[2021-02-24 04:42] LABS: Albumin 3.4 G/DL (3.4-5.0); Bilirubin,Direct 0.24 MG/DL (0.0-0.20); Bilirubin,Total 1.2 MG/DL (0.20-1.00); Calcium 7.9 MG/DL (8.5-10.1); Potassium 4.4 MMOL/L (3.5-5.1); Total Protein 5.7 G/DL (6.4-8.2)
[2021-02-24 04:52] LABS: Lymphocytes 2 % (20-55); Platelet Estimate Decreased; Segmented Neutrophils 96 % (50-85); Total Cells Counted 100
[2021-02-24] MEDS: POTASSIUM CHLORIDE RIDER 20 MEQ/100 ML PREMIX IV PRN (05:01)
[2021-02-24 05:03] LABS: CKMB % 5.8 %
[2021-02-24] MEDS: KETOROLAC 15 MG/1 ML VIAL IV SCH ×3 (05:17→17:43)
[2021-02-24] MEDS: amLODIPine 10 MG TABLET PO SCH (09:00)
[2021-02-24] MEDS: PANTOPRAZOLE 40 MG TABLET PO SCH (09:00)
[2021-02-24] MEDS: METOPROLOL TARTRATE 25 MG TABLET PO SCH ×2 (09:00→20:07)
[2021-02-24] MEDS: CHLORHEXIDINE 0.12% ORAL RINSE 60 ML BOTTLE SWISH/SPIT SCH ×2 (09:00→20:05)
[2021-02-24] MEDS: GABAPENTIN 100 MG CAPSULE PO SCH ×2 (09:00→20:06)
[2021-02-24] MEDS: ASPIRIN EC 81 MG TABLET PO SCH (09:00)
[2021-02-24] MEDS: PRAZOSIN 1 MG CAPSULE PO SCH ×2 (11:09→20:07)
[2021-02-24] MEDS: SODIUM CHLORIDE 0.45% 1,000 ML IV SCH (11:10)
[2021-02-24] MEDS: VANCOMYCIN INJ 1,000 MG in SODIUM CHLORIDE 0.9% 250 ML IV SCH (12:22)
[2021-02-24 13:45] LABS: CKMB % 3.9 %
[2021-02-24 13:53] LABS: High Sensitive Troponin I* 7453.7 ng/L (0-54)
[2021-02-24] MEDS ORDERED: FUROSEMIDE 40 MG/4 ML VIAL IV ONE (17:19)
[2021-02-24] MEDS: ATORVASTATIN 40 MG TABLET PO SCH (20:07)
[2021-02-25] MEDS: VANCOMYCIN INJ 1,000 MG in SODIUM CHLORIDE 0.9% 250 ML IV SCH ×2 (00:08→13:17)
[2021-02-25] MEDS: INSULIN REGULAR 100 UNIT/ML SUBCUT SCH ×4 (00:09→17:29)
[2021-02-25 03:28] LABS: Basophils % 0.1 % (0.0-0.8); Hematocrit 32.1 VOL% (35.7-47.0); Hemoglobin 10.3 GM/DL (12.0-16.0); Immature Granulocytes % 0.9 %; Immature Granulocytes Absolute 0.15 #; Lymphocytes % 5.6 % (21.3-54.2); Mean Corpuscular HGB Conc 32.1 GM/DL (32-36); Mean Platelet Volume 10.9 FL (9.6-12.0); Monocytes % 4.3 % (1.7-12.7); Neutrophils % 89.1 % (38.7-73.9); Platelet Count 101 T/CUMM (130-400); Red Blood Count 3.45 MC/CUMM (3.8-5.5); Red Cell Distribution Width 15.7 % (9.3-17.3); White Blood Count 17.2 T/CUMM (4-12)
[2021-02-25 03:49] LABS: Albumin 3.3 G/DL (3.4-5.0); Bilirubin,Direct 0.18 MG/DL (0.0-0.20); Bilirubin,Total 0.5 MG/DL (0.20-1.00); Calcium 8.1 MG/DL (8.5-10.1); Osmolality,Calculated 284.5 MOS/KG (273-304); Potassium 4.1 MMOL/L (3.5-5.1); Total Protein 5.8 G/DL (6.4-8.2)
[2021-02-25 03:50] LABS: CKMB % 2.8 %; High Sensitive Troponin I* 4524.8 ng/L (0-54)
[2021-02-25] MEDS: POTASSIUM CHLORIDE RIDER 20 MEQ/100 ML PREMIX IV PRN (04:10)
[2021-02-25] MEDS: CHLORHEXIDINE 0.12% ORAL RINSE 60 ML BOTTLE SWISH/SPIT SCH ×2 (09:30→21:28)
[2021-02-25] MEDS: PANTOPRAZOLE 40 MG TABLET PO SCH (09:39)
[2021-02-25] MEDS: amLODIPine 10 MG TABLET PO SCH (09:39)
[2021-02-25] MEDS: ASPIRIN EC 81 MG TABLET PO SCH (09:39)
[2021-02-25] MEDS: GABAPENTIN 100 MG CAPSULE PO SCH ×2 (09:40→21:31)
[2021-02-25] MEDS: METOPROLOL TARTRATE 25 MG TABLET PO SCH ×3 (09:40→21:31)
[2021-02-25] MEDS: PRAZOSIN 1 MG CAPSULE PO SCH ×2 (09:42→21:30)
[2021-02-25] MEDS: SODIUM CHLORIDE 0.45% 1,000 ML IV SCH (12:10)
[2021-02-25] MEDS ORDERED: MAGNESIUM SULF RIDER 2 GM/50 ML PREMIX IV PRN (12:47)
[2021-02-25] MEDS ORDERED: MAGNESIUM HYDROXIDE SUSP 30 ML UDCUP PO PRN (12:47)
[2021-02-25] MEDS ORDERED: DEXTROSE 50% 25 GM/50 ML VIAL IV PRN (12:47)
[2021-02-25] MEDS ORDERED: ONDANSETRON 4 MG/2 ML VIAL IV PRN (12:47)
[2021-02-25] MEDS ORDERED: ZALEPLON 5 MG CAPSULE PO PRN (12:47)
[2021-02-25] MEDS ORDERED: MAGNESIUM SULF RIDER 4 GM/100 ML PREMIX IV PRN (12:47)
[2021-02-25] MEDS ORDERED: ACETAMINOPHEN 325 MG TABLET PO PRN (12:47)
[2021-02-25] MEDS ORDERED: ALUMINUM/MAGNES/SIMETH MAX STR 30 ML UDCUP PO PRN (12:47)
[2021-02-25] MEDS ORDERED: SODIUM CHLOR 0.45% KCL 20 MEQ 20 MEQ/1,000 ML BAG IV SCH (12:47)
[2021-02-25] MEDS ORDERED: GLUCAGON 1 MG VIAL IM PRN (12:47)
[2021-02-25] MEDS ORDERED: hydrALAZINE 20 MG/1 ML VIAL IV PRN (16:49)
[2021-02-25] MEDS: ATORVASTATIN 40 MG TABLET PO SCH (21:30)
[2021-02-26] MEDS: INSULIN REGULAR 100 UNIT/ML SUBCUT SCH ×4 (01:05→17:12)
[2021-02-26 07:17] LABS: Basophils % 0.1 % (0.0-0.8); Eosinophils % 0.1 % (0.00-10.9); Hematocrit 32.8 VOL% (35.7-47.0); Hemoglobin 10.7 GM/DL (12.0-16.0); Immature Granulocytes % 0.8 %; Immature Granulocytes Absolute 0.11 #; Lymphocytes # 0.9 10*3/uL (1.4-4.0); Mean Corpuscular HGB Conc 32.6 GM/DL (32-36); Mean Corpuscular Volume 92.9 FL (87-102); Mean Platelet Volume 11.5 FL (9.6-12.0); Monocytes % 4.9 % (1.7-12.7); Neutrophils % 87.1 % (38.7-73.9); Platelet Count 109 T/CUMM (130-400); Red Blood Count 3.53 MC/CUMM (3.8-5.5); Red Cell Distribution Width 15.2 % (9.3-17.3); White Blood Count 13.4 T/CUMM (4-12)
[2021-02-26 07:38] LABS: Alanine Aminotransferase 27 U/L (13-56); Albumin 2.9 G/DL (3.4-5.0); Alkaline Phosphatase 44 U/L (45-117); Aspartate Amino Transferase 16 U/L (0-37); Bilirubin,Indirect 0.6 MG/DL (0.0-1.0); Blood Urea Nitrogen 35 MG/DL (7-18); Calcium 8.1 MG/DL (8.5-10.1); Carbon Dioxide 28 MMOL/L (21-32); Estimated Glom Filtration Rate 65 ML/MIN; Glucose 112 MG/DL (74-106); Osmolality,Calculated 287.4 MOS/KG (273-304); Potassium 4.3 MMOL/L (3.5-5.1); Sodium 140 MMOL/L (136-145); Total Protein 5.6 G/DL (6.4-8.2)
[2021-02-26] MEDS: METOPROLOL TARTRATE 25 MG TABLET PO SCH ×2 (09:32→21:27)
[2021-02-26] MEDS: amLODIPine 10 MG TABLET PO SCH (09:32)
[2021-02-26] MEDS: ASPIRIN EC 81 MG TABLET PO SCH (09:32)
[2021-02-26] MEDS: GABAPENTIN 100 MG CAPSULE PO SCH ×2 (09:32→21:27)
[2021-02-26] MEDS: DOCUSATE SODIUM 100 MG CAPSULE PO SCH (09:32)
[2021-02-26] MEDS: PRAZOSIN 1 MG CAPSULE PO SCH ×2 (09:33→21:24)
[2021-02-26] MEDS: CHOLECALCIFEROL 1,000 UNIT TABLET PO SCH (09:33)
[2021-02-26] MEDS: PANTOPRAZOLE 40 MG TABLET PO SCH (09:33)
[2021-02-26] MEDS: DULoxetine 30 MG CAPSULE PO SCH (09:33)
[2021-02-26] MEDS: OXYBUTYNIN 5 MG TABLET PO SCH (09:33)
[2021-02-26] MEDS: FERROUS SULFATE 325 MG TABLET PO SCH (09:34)
[2021-02-26] MEDS: CHLORHEXIDINE 0.12% ORAL RINSE 60 ML BOTTLE SWISH/SPIT SCH ×2 (09:38→21:27)
[2021-02-26] MEDS: ATORVASTATIN 40 MG TABLET PO SCH (21:27)
[2021-02-27] MEDS: INSULIN REGULAR 100 UNIT/ML SUBCUT SCH ×5 (01:08→20:16)
[2021-02-27 07:56] LABS: Eosinophils # 0.3 10*3/uL (0.0-0.87); Eosinophils % 2.9 % (0.00-10.9); Hematocrit 30.4 VOL% (35.7-47.0); Hemoglobin 9.7 GM/DL (12.0-16.0); Immature Granulocytes % 0.6 %; Immature Granulocytes Absolute 0.06 #; Lymphocytes # 1.6 10*3/uL (1.4-4.0); Lymphocytes % 16.5 % (21.3-54.2); Mean Corpuscular HGB Conc 31.9 GM/DL (32-36); Mean Corpuscular Volume 93.5 FL (87-102); Mean Platelet Volume 11.4 FL (9.6-12.0); Monocytes % 7.5 % (1.7-12.7); Neutrophils % 72.5 % (38.7-73.9); Platelet Count 126 T/CUMM (130-400); Red Blood Count 3.25 MC/CUMM (3.8-5.5); Red Cell Distribution Width 15.3 % (9.3-17.3); White Blood Count 9.4 T/CUMM (4-12)
[2021-02-27 08:13] LABS: Alanine Aminotransferase 30 U/L (13-56); Albumin 2.7 G/DL (3.4-5.0); Alkaline Phosphatase 43 U/L (45-117); Aspartate Amino Transferase 15 U/L (0-37); Bilirubin,Indirect 0.3 MG/DL (0.0-1.0); Blood Urea Nitrogen 38 MG/DL (7-18); Calcium 7.7 MG/DL (8.5-10.1); Carbon Dioxide 29 MMOL/L (21-32); Estimated Glom Filtration Rate 55 ML/MIN; Glucose 97 MG/DL (74-106); Osmolality,Calculated 291.1 MOS/KG (273-304); Potassium 3.9 MMOL/L (3.5-5.1); Sodium 142 MMOL/L (136-145); Total Protein 5.1 G/DL (6.4-8.2)
[2021-02-27] MEDS: ASPIRIN EC 81 MG TABLET PO SCH (08:15)
[2021-02-27] MEDS: OXYBUTYNIN 5 MG TABLET PO SCH (08:15)
[2021-02-27] MEDS: METOPROLOL TARTRATE 25 MG TABLET PO SCH ×2 (08:15→21:23)
[2021-02-27] MEDS: DOCUSATE SODIUM 100 MG CAPSULE PO SCH (08:15)
[2021-02-27] MEDS: FERROUS SULFATE 325 MG TABLET PO SCH (08:15)
[2021-02-27] MEDS: PANTOPRAZOLE 40 MG TABLET PO SCH (08:16)
[2021-02-27] MEDS: CHOLECALCIFEROL 1,000 UNIT TABLET PO SCH (08:16)
[2021-02-27] MEDS: GABAPENTIN 100 MG CAPSULE PO SCH ×2 (08:16→21:23)
[2021-02-27] MEDS: amLODIPine 10 MG TABLET PO SCH (08:16)
[2021-02-27] MEDS: PRAZOSIN 1 MG CAPSULE PO SCH ×2 (08:17→21:23)
[2021-02-27] MEDS: CHLORHEXIDINE 0.12% ORAL RINSE 60 ML BOTTLE SWISH/SPIT SCH ×2 (08:18→21:21)
[2021-02-27] MEDS: DULoxetine 30 MG CAPSULE PO SCH (08:18)
[2021-02-27] MEDS: FUROSEMIDE 40 MG/4 ML VIAL IV SCH (12:20)
[2021-02-27] MEDS: ATORVASTATIN 40 MG TABLET PO SCH (21:23)
[2021-02-28 05:31] LABS: Basophils % 0.1 % (0.0-0.8); Eosinophils # 0.2 10*3/uL (0.0-0.87); Eosinophils % 1.7 % (0.00-10.9); Hematocrit 30.6 VOL% (35.7-47.0); Hemoglobin 9.8 GM/DL (12.0-16.0); Immature Granulocytes % 0.7 %; Lymphocytes # 1.1 10*3/uL (1.4-4.0); Lymphocytes % 7.7 % (21.3-54.2); Mean Corpuscular Volume 93.9 FL (87-102); Neutrophils % 85.8 % (38.7-73.9); Platelet Count 129 T/CUMM (130-400); Red Blood Count 3.26 MC/CUMM (3.8-5.5); Red Cell Distribution Width 15.4 % (9.3-17.3); White Blood Count 13.7 T/CUMM (4-12)
[2021-02-28 05:57] LABS: Albumin 2.6 G/DL (3.4-5.0); Bilirubin,Direct 0.19 MG/DL (0.0-0.20); Bilirubin,Indirect 1.1 MG/DL (0.0-1.0); Bilirubin,Total 1.3 MG/DL (0.20-1.00); Calcium 7.8 MG/DL (8.5-10.1); Osmolality,Calculated 291.3 MOS/KG (273-304)
[2021-02-28] MEDS: GABAPENTIN 100 MG CAPSULE PO SCH ×2 (08:19→21:40)
[2021-02-28] MEDS: METOPROLOL TARTRATE 25 MG TABLET PO SCH ×2 (08:20→21:40)
[2021-02-28] MEDS: OXYBUTYNIN 5 MG TABLET PO SCH (08:20)
[2021-02-28] MEDS: CHOLECALCIFEROL 1,000 UNIT TABLET PO SCH (08:20)
[2021-02-28] MEDS: ASPIRIN EC 81 MG TABLET PO SCH (08:21)
[2021-02-28] MEDS: PANTOPRAZOLE 40 MG TABLET PO SCH (08:21)
[2021-02-28] MEDS: FERROUS SULFATE 325 MG TABLET PO SCH (08:21)
[2021-02-28] MEDS: DOCUSATE SODIUM 100 MG CAPSULE PO SCH (08:21)
[2021-02-28] MEDS: amLODIPine 10 MG TABLET PO SCH (08:21)
[2021-02-28] MEDS: PRAZOSIN 1 MG CAPSULE PO SCH ×2 (08:24→21:40)
[2021-02-28] MEDS: FUROSEMIDE 40 MG/4 ML VIAL IV SCH (08:24)
[2021-02-28] MEDS: CHLORHEXIDINE 0.12% ORAL RINSE 60 ML BOTTLE SWISH/SPIT SCH ×2 (08:28→21:42)
[2021-02-28] MEDS: INSULIN REGULAR 100 UNIT/ML SUBCUT SCH ×4 (08:28→21:39)
[2021-02-28] MEDS: DULoxetine 30 MG CAPSULE PO SCH (09:55)
[2021-02-28] MEDS: ATORVASTATIN 40 MG TABLET PO SCH (21:40)
[2021-03-01 04:36] LABS: Basophils % 0.2 % (0.0-0.8); Eosinophils # 0.4 10*3/uL (0.0-0.87); Eosinophils % 3.5 % (0.00-10.9); Hematocrit 30.3 VOL% (35.7-47.0); Hemoglobin 9.7 GM/DL (12.0-16.0); Immature Granulocytes % 0.7 %; Immature Granulocytes Absolute 0.08 #; Lymphocytes # 1.3 10*3/uL (1.4-4.0); Lymphocytes % 11.7 % (21.3-54.2); Mean Corpuscular Volume 92.7 FL (87-102); Mean Platelet Volume 10.9 FL (9.6-12.0); Monocytes % 5.8 % (1.7-12.7); Neutrophils % 78.1 % (38.7-73.9); Platelet Count 143 T/CUMM (130-400); Red Blood Count 3.27 MC/CUMM (3.8-5.5); Red Cell Distribution Width 15.3 % (9.3-17.3); White Blood Count 11.5 T/CUMM (4-12)
[2021-03-01 04:55] LABS: Alanine Aminotransferase 21 U/L (13-56); Albumin 2.6 G/DL (3.4-5.0); Alkaline Phosphatase 45 U/L (45-117); Aspartate Amino Transferase 14 U/L (0-37); Bilirubin,Indirect 0.6 MG/DL (0.0-1.0); Blood Urea Nitrogen 32 MG/DL (7-18); Calcium 7.9 MG/DL (8.5-10.1); Carbon Dioxide 29 MMOL/L (21-32); Estimated Glom Filtration Rate 63 ML/MIN; Glucose 85 MG/DL (74-106); Osmolality,Calculated 286.3 MOS/KG (273-304); Potassium 3.3 MMOL/L (3.5-5.1); Sodium 141 MMOL/L (136-145); Total Protein 5.1 G/DL (6.4-8.2)
[2021-03-01] MEDS: DOCUSATE SODIUM 100 MG CAPSULE PO SCH (08:54)
[2021-03-01] MEDS: POTASSIUM CHLORIDE 20 MEQ TABLET PO PRN ×3 (08:54→22:16)
[2021-03-01] MEDS: CHOLECALCIFEROL 1,000 UNIT TABLET PO SCH (08:55)
[2021-03-01] MEDS: METOPROLOL TARTRATE 25 MG TABLET PO SCH ×2 (08:55→20:39)
[2021-03-01] MEDS: ASPIRIN EC 81 MG TABLET PO SCH (08:55)
[2021-03-01] MEDS: amLODIPine 10 MG TABLET PO SCH (08:55)
[2021-03-01] MEDS: FERROUS SULFATE 325 MG TABLET PO SCH (08:55)
[2021-03-01] MEDS: GABAPENTIN 100 MG CAPSULE PO SCH ×2 (08:55→20:39)
[2021-03-01] MEDS: PANTOPRAZOLE 40 MG TABLET PO SCH (08:55)
[2021-03-01] MEDS: FUROSEMIDE 40 MG/4 ML VIAL IV SCH (08:55)
[2021-03-01] MEDS: OXYBUTYNIN 5 MG TABLET PO SCH (09:02)
[2021-03-01] MEDS: PRAZOSIN 1 MG CAPSULE PO SCH ×2 (09:03→20:40)
[2021-03-01] MEDS: CHLORHEXIDINE 0.12% ORAL RINSE 60 ML BOTTLE SWISH/SPIT SCH ×2 (09:03→20:40)
[2021-03-01] MEDS: INSULIN REGULAR 100 UNIT/ML SUBCUT SCH ×4 (10:04→20:39)
[2021-03-01] MEDS: DULoxetine 30 MG CAPSULE PO SCH (10:04)
[2021-03-01] MEDS: ATORVASTATIN 40 MG TABLET PO SCH (20:39)
[2021-03-02 05:37] LABS: Basophils % 0.3 % (0.0-0.8); Eosinophils # 0.6 10*3/uL (0.0-0.87); Eosinophils % 5.5 % (0.00-10.9); Hematocrit 29.6 VOL% (35.7-47.0); Hemoglobin 9.6 GM/DL (12.0-16.0); Immature Granulocytes % 0.8 %; Immature Granulocytes Absolute 0.09 #; Lymphocytes # 1.2 10*3/uL (1.4-4.0); Lymphocytes % 11.1 % (21.3-54.2); Mean Corpuscular HGB Conc 32.4 GM/DL (32-36); Mean Corpuscular Volume 92.5 FL (87-102); Mean Platelet Volume 10.7 FL (9.6-12.0); Monocytes % 7.1 % (1.7-12.7); Neutrophils % 75.2 % (38.7-73.9); Platelet Count 149 T/CUMM (130-400); Red Cell Distribution Width 15.4 % (9.3-17.3); White Blood Count 10.9 T/CUMM (4-12)
[2021-03-02 06:03] LABS: Alanine Aminotransferase 21 U/L (13-56); Albumin 2.5 G/DL (3.4-5.0); Alkaline Phosphatase 44 U/L (45-117); Aspartate Amino Transferase 14 U/L (0-37); Bilirubin,Indirect 0.7 MG/DL (0.0-1.0); Blood Urea Nitrogen 32 MG/DL (7-18); Calcium 8.1 MG/DL (8.5-10.1); Carbon Dioxide 27 MMOL/L (21-32); Estimated Glom Filtration Rate 42 ML/MIN; Glucose 103 MG/DL (74-106); Potassium 4.1 MMOL/L (3.5-5.1); Sodium 143 MMOL/L (136-145); Total Protein 5.3 G/DL (6.4-8.2)
[2021-03-02] MEDS: INSULIN REGULAR 100 UNIT/ML SUBCUT SCH ×2 (08:05→11:46)
[2021-03-02] MEDS: PANTOPRAZOLE 40 MG TABLET PO SCH (09:58)
[2021-03-02] MEDS: CHOLECALCIFEROL 1,000 UNIT TABLET PO SCH (09:58)
[2021-03-02] MEDS: DOCUSATE SODIUM 100 MG CAPSULE PO SCH (09:58)
[2021-03-02] MEDS: GABAPENTIN 100 MG CAPSULE PO SCH (09:58)
[2021-03-02] MEDS: DULoxetine 30 MG CAPSULE PO SCH (09:58)
[2021-03-02] MEDS: FERROUS SULFATE 325 MG TABLET PO SCH (09:59)
[2021-03-02] MEDS: OXYBUTYNIN 5 MG TABLET PO SCH (09:59)
[2021-03-02] MEDS: PRAZOSIN 1 MG CAPSULE PO SCH (09:59)
[2021-03-02] MEDS: ASPIRIN EC 81 MG TABLET PO SCH (09:59)
[2021-03-02] MEDS: METOPROLOL TARTRATE 25 MG TABLET PO SCH (09:59)
[2021-03-02] MEDS: FUROSEMIDE 40 MG/4 ML VIAL IV SCH (10:00)
[2021-03-02] MEDS: CHLORHEXIDINE 0.12% ORAL RINSE 60 ML BOTTLE SWISH/SPIT SCH (10:03)
[2021-03-02] MEDS: amLODIPine 10 MG TABLET PO SCH (10:03)
[2021-03-02 12:42] VITALS: BP 138/53
== END 2021-03-02 13:14 | disposition home health service (06) | DRG 234 ==
LOC: EDBD → EDUNIT# → N.ED 21:44 → N.EDINP 21:44 → SUATTDRO 02-20 00:09 → N.EDINP 02-20 01:09 → N.TELES 02-20 02:23 → SUATTDRO 02-20 09:44 → N.CVR 02-23 11:27 → N.TELES 02-25 18:36
PROVIDERS: ADMIT Internal Medicine; ATTEND Internal Medicine Geriatric Medicine

== ENCOUNTER 2021-03-08 15:51 | Inpatient (IN) ==
[2021-03-08 16:33] LABS: Basophils # 0.1 10*3/uL (0.0-0.2); Basophils % 0.4 % (0.0-0.8); Eosinophils # 0.1 10*3/uL (0.0-0.87); Hematocrit 30.9 VOL% (35.7-47.0); Immature Granulocytes % 0.8 %; Immature Granulocytes Absolute 0.11 #; Lymphocytes # 1.1 10*3/uL (1.4-4.0); Lymphocytes % 8.1 % (21.3-54.2); Mean Corpuscular HGB Conc 32.4 GM/DL (32-36); Mean Corpuscular Volume 91.2 FL (87-102); Mean Platelet Volume 9.5 FL (9.6-12.0); Monocytes % 5.1 % (1.7-12.7); Neutrophils % 84.6 % (38.7-73.9); Platelet Count 259 T/CUMM (130-400); Red Blood Count 3.39 MC/CUMM (3.8-5.5); White Blood Count 13.9 T/CUMM (4-12)
[2021-03-08 17:00] LABS: INR 1.1; PT Patient Result 12.1 SECS (10.5-12.0)
[2021-03-08 17:18] LABS: Albumin 3.1 G/DL (3.4-5.0); Bilirubin,Total 0.6 MG/DL (0.20-1.00); Calcium 8.4 MG/DL (8.5-10.1); Potassium 3.5 MMOL/L (3.5-5.1); Total Protein 5.7 G/DL (6.4-8.2)
[2021-03-08] MEDS ORDERED: CEFEPIME 1,000 MG in SODIUM CHLORIDE 0.9% 100 ML IV STA (17:51)
[2021-03-08] MEDS ORDERED: FUROSEMIDE 40 MG/4 ML VIAL IV STA (17:51)
[2021-03-08] MEDS ORDERED: ONDANSETRON 4 MG/2 ML VIAL IV PRN (17:55)
[2021-03-08] MEDS ORDERED: ACETAMINOPHEN 325 MG TABLET PO PRN (17:55)
[2021-03-08] MEDS: CEFEPIME 1,000 MG in SODIUM CHLORIDE 0.9% 100 ML IV SCH (18:18)
[2021-03-08] MEDS ORDERED: ATORVASTATIN 40 MG TABLET PO SCH (21:00)
[2021-03-08] MEDS: GABAPENTIN 100 MG CAPSULE PO SCH (21:19)
[2021-03-08] MEDS: METOPROLOL TARTRATE 25 MG TABLET PO SCH (21:19)
[2021-03-09] MEDS: CEFEPIME 1,000 MG in SODIUM CHLORIDE 0.9% 100 ML IV SCH ×3 (02:14→18:05)
[2021-03-09 04:26] LABS: Basophils # 0.1 10*3/uL (0.0-0.2); Basophils % 0.4 % (0.0-0.8); Eosinophils # 0.4 10*3/uL (0.0-0.87); Eosinophils % 3.8 % (0.00-10.9); Hematocrit 31.7 VOL% (35.7-47.0); Hemoglobin 10.2 GM/DL (12.0-16.0); Immature Granulocytes % 0.6 %; Immature Granulocytes Absolute 0.07 #; Lymphocytes # 1.2 10*3/uL (1.4-4.0); Lymphocytes % 10.6 % (21.3-54.2); Mean Corpuscular HGB Conc 32.2 GM/DL (32-36); Mean Corpuscular Volume 91.9 FL (87-102); Mean Platelet Volume 9.9 FL (9.6-12.0); Monocytes % 6.2 % (1.7-12.7); Neutrophils % 78.4 % (38.7-73.9); Platelet Count 267 T/CUMM (130-400); Red Blood Count 3.45 MC/CUMM (3.8-5.5); Red Cell Distribution Width 15.2 % (9.3-17.3); White Blood Count 11.2 T/CUMM (4-12)
[2021-03-09 04:44] LABS: Albumin 2.7 G/DL (3.4-5.0); Bilirubin,Total 0.8 MG/DL (0.20-1.00); Calcium 8.2 MG/DL (8.5-10.1); Osmolality,Calculated 279.7 MOS/KG (273-304); Potassium 3.2 MMOL/L (3.5-5.1); Total Protein 5.8 G/DL (6.4-8.2)
[2021-03-09] MEDS ORDERED: predniSONE 5 MG TABLET PO SCH (09:00)
[2021-03-09] MEDS: FUROSEMIDE 20 MG TABLET PO SCH (09:13)
[2021-03-09] MEDS: ASPIRIN CHEW 81 MG TABLET PO SCH (09:13)
[2021-03-09] MEDS: PANTOPRAZOLE 40 MG TABLET PO SCH (09:13)
[2021-03-09] MEDS: POTASSIUM CHLORIDE 20 MEQ TABLET PO SCH (09:13)
[2021-03-09] MEDS: GABAPENTIN 100 MG CAPSULE PO SCH ×2 (09:13→21:02)
[2021-03-09] MEDS: METOPROLOL TARTRATE 25 MG TABLET PO SCH (09:13)
[2021-03-09] MEDS: amLODIPine 10 MG TABLET PO SCH (09:13)
[2021-03-09] MEDS: OXYBUTYNIN 5 MG TABLET PO SCH (09:13)
[2021-03-09] MEDS ORDERED: GLUCAGON 1 MG VIAL IM PRN (12:13)
[2021-03-09] MEDS ORDERED: DEXTROSE 50% 25 GM/50 ML SYRINGE IV PRN (12:17)
[2021-03-09] MEDS: INSULIN REGULAR 100 UNIT/ML SUBCUT SCH ×2 (15:46→20:42)
[2021-03-09] MEDS: LEVALBUTEROL 0.63 MG/3 ML NEB RESP TX SCH (20:10)
[2021-03-09] MEDS: SOTALOL 80 MG TABLET PO SCH (21:02)
[2021-03-09] MEDS: ASCORBIC ACID 500 MG TABLET PO SCH (21:02)
[2021-03-10] MEDS: LEVALBUTEROL 0.63 MG/3 ML NEB RESP TX SCH ×5 (01:11→20:18)
[2021-03-10] MEDS: CEFEPIME 1,000 MG in SODIUM CHLORIDE 0.9% 100 ML IV SCH ×3 (01:50→19:08)
[2021-03-10 07:11] LABS: Basophils # 0.1 10*3/uL (0.0-0.2); Basophils % 0.7 % (0.0-0.8); Eosinophils # 0.7 10*3/uL (0.0-0.87); Eosinophils % 5.1 % (0.00-10.9); Hemoglobin 10.7 GM/DL (12.0-16.0); Immature Granulocytes % 0.7 %; Lymphocytes # 0.8 10*3/uL (1.4-4.0); Lymphocytes % 5.9 % (21.3-54.2); Mean Corpuscular HGB Conc 31.5 GM/DL (32-36); Mean Corpuscular Volume 92.6 FL (87-102); Mean Platelet Volume 9.4 FL (9.6-12.0); Monocytes % 3.7 % (1.7-12.7); Neutrophils % 83.9 % (38.7-73.9); Platelet Count 282 T/CUMM (130-400); Red Blood Count 3.67 MC/CUMM (3.8-5.5); White Blood Count 13.6 T/CUMM (4-12)
[2021-03-10] MEDS: INSULIN REGULAR 100 UNIT/ML SUBCUT SCH ×4 (07:47→20:36)
[2021-03-10] MEDS ORDERED: ZALEPLON 5 MG CAPSULE PO PRN (09:24)
[2021-03-10] MEDS: ASCORBIC ACID 500 MG TABLET PO SCH ×2 (09:30→21:40)
[2021-03-10] MEDS: GABAPENTIN 100 MG CAPSULE PO SCH ×2 (09:30→21:43)
[2021-03-10] MEDS: FUROSEMIDE 20 MG TABLET PO SCH (09:30)
[2021-03-10] MEDS: OXYBUTYNIN 5 MG TABLET PO SCH (09:30)
[2021-03-10] MEDS: SOTALOL 80 MG TABLET PO SCH ×2 (09:30→21:46)
[2021-03-10] MEDS: POTASSIUM CHLORIDE 20 MEQ TABLET PO SCH ×2 (09:30→21:44)
[2021-03-10] MEDS: ASPIRIN CHEW 81 MG TABLET PO SCH (09:30)
[2021-03-10] MEDS: amLODIPine 10 MG TABLET PO SCH (09:30)
[2021-03-10] MEDS: PANTOPRAZOLE 40 MG TABLET PO SCH (09:31)
[2021-03-10] MEDS: VANCOMYCIN INJ 1,000 MG in SODIUM CHLORIDE 0.9% 250 ML IV SCH (09:37)
[2021-03-10] MEDS: methylPREDNISolone SOD SUC 40 MG/1 ML VIAL IV SCH ×2 (09:37→21:58)
[2021-03-10 11:32] LABS: Calcium 8.3 MG/DL (8.5-10.1); Osmolality,Calculated 273.1 MOS/KG (273-304); Potassium 3.9 MMOL/L (3.5-5.1)
[2021-03-10] MEDS: FUROSEMIDE 40 MG/4 ML VIAL IV SCH (16:18)
[2021-03-11] MEDS: CEFEPIME 1,000 MG in SODIUM CHLORIDE 0.9% 100 ML IV SCH ×2 (01:23→10:53)
[2021-03-11] MEDS: LEVALBUTEROL 0.63 MG/3 ML NEB RESP TX SCH ×4 (01:30→18:36)
[2021-03-11] MEDS: VANCOMYCIN INJ 1,000 MG in SODIUM CHLORIDE 0.9% 250 ML IV SCH (02:26)
[2021-03-11 05:16] LABS: Basophils % 0.2 % (0.0-0.8); Hematocrit 33.6 VOL% (35.7-47.0); Hemoglobin 10.8 GM/DL (12.0-16.0); Immature Granulocytes Absolute 0.11 #; Lymphocytes # 0.7 10*3/uL (1.4-4.0); Lymphocytes % 6.1 % (21.3-54.2); Mean Corpuscular HGB Conc 32.1 GM/DL (32-36); Mean Corpuscular Volume 91.3 FL (87-102); Mean Platelet Volume 9.6 FL (9.6-12.0); Monocytes % 0.9 % (1.7-12.7); Neutrophils % 91.8 % (38.7-73.9); Platelet Count 329 T/CUMM (130-400); Red Blood Count 3.68 MC/CUMM (3.8-5.5); Red Cell Distribution Width 14.6 % (9.3-17.3); White Blood Count 10.7 T/CUMM (4-12)
[2021-03-11 05:42] LABS: Calcium 8.2 MG/DL (8.5-10.1); Osmolality,Calculated 274.1 MOS/KG (273-304); Potassium 3.7 MMOL/L (3.5-5.1)
[2021-03-11 05:50] LABS: Hypochromasia Slight; Lymphocytes 4 % (20-55); Microcytosis Slight; Ovalocytes Slight; Platelet Estimate Adequate; Segmented Neutrophils 95 % (50-85); Total Cells Counted 100
[2021-03-11] MEDS: INSULIN REGULAR 100 UNIT/ML SUBCUT SCH ×3 (09:06→17:18)
[2021-03-11] MEDS: SOTALOL 80 MG TABLET PO SCH ×2 (09:07→21:28)
[2021-03-11] MEDS: OXYBUTYNIN 5 MG TABLET PO SCH (09:07)
[2021-03-11] MEDS: amLODIPine 10 MG TABLET PO SCH (09:07)
[2021-03-11] MEDS: POTASSIUM CHLORIDE 20 MEQ TABLET PO SCH ×2 (09:08→21:28)
[2021-03-11] MEDS: GABAPENTIN 100 MG CAPSULE PO SCH ×2 (09:08→21:28)
[2021-03-11] MEDS: ASPIRIN CHEW 81 MG TABLET PO SCH (09:08)
[2021-03-11] MEDS: PANTOPRAZOLE 40 MG TABLET PO SCH (09:08)
[2021-03-11] MEDS: FUROSEMIDE 40 MG/4 ML VIAL IV SCH ×2 (09:08→17:17)
[2021-03-11] MEDS: methylPREDNISolone SOD SUC 40 MG/1 ML VIAL IV SCH (09:08)
[2021-03-11] MEDS: ASCORBIC ACID 500 MG TABLET PO SCH ×2 (09:09→21:28)
[2021-03-11] MEDS: CLORAZEPATE 3.75 MG TABLET PO PRN (10:53)
[2021-03-11] MEDS: hydrALAZINE 25 MG TABLET PO SCH ×2 (17:17→21:28)
[2021-03-12] MEDS: LEVALBUTEROL 0.63 MG/3 ML NEB RESP TX SCH ×4 (00:12→19:54)
[2021-03-12] MEDS: CEFEPIME 1,000 MG in SODIUM CHLORIDE 0.9% 100 ML IV SCH ×3 (05:30→10:15)
[2021-03-12] MEDS: INSULIN REGULAR 100 UNIT/ML SUBCUT SCH ×5 (05:30→23:05)
[2021-03-12] MEDS: VANCOMYCIN INJ 1,000 MG in SODIUM CHLORIDE 0.9% 250 ML IV SCH ×2 (05:31→15:19)
[2021-03-12] MEDS: FUROSEMIDE 40 MG/4 ML VIAL IV SCH ×3 (07:25→15:19)
[2021-03-12 07:34] LABS: Basophils % 0.2 % (0.0-0.8); Eosinophils % 0.1 % (0.00-10.9); Hematocrit 35.4 VOL% (35.7-47.0); Hemoglobin 11.8 GM/DL (12.0-16.0); Immature Granulocytes % 0.8 %; Lymphocytes # 1.5 10*3/uL (1.4-4.0); Lymphocytes % 11.6 % (21.3-54.2); Mean Corpuscular HGB Conc 33.3 GM/DL (32-36); Mean Corpuscular Volume 89.6 FL (87-102); Mean Platelet Volume 9.3 FL (9.6-12.0); Monocytes % 6.5 % (1.7-12.7); Neutrophils % 80.8 % (38.7-73.9); Platelet Count 334 T/CUMM (130-400); Red Blood Count 3.95 MC/CUMM (3.8-5.5); Red Cell Distribution Width 14.9 % (9.3-17.3); White Blood Count 13.2 T/CUMM (4-12)
[2021-03-12 07:43] LABS: Calcium 8.5 MG/DL (8.5-10.1); Osmolality,Calculated 277.1 MOS/KG (273-304); Potassium 3.8 MMOL/L (3.5-5.1)
[2021-03-12] MEDS ORDERED: methylPREDNISolone SOD SUC 40 MG/1 ML VIAL IV SCH (09:00)
[2021-03-12] MEDS: PANTOPRAZOLE 40 MG TABLET PO SCH (09:47)
[2021-03-12] MEDS: ASCORBIC ACID 500 MG TABLET PO SCH ×2 (09:47→21:32)
[2021-03-12] MEDS: hydrALAZINE 25 MG TABLET PO SCH ×3 (09:47→21:32)
[2021-03-12] MEDS: ASPIRIN CHEW 81 MG TABLET PO SCH (09:48)
[2021-03-12] MEDS: SOTALOL 80 MG TABLET PO SCH (09:48)
[2021-03-12] MEDS: POTASSIUM CHLORIDE 20 MEQ TABLET PO SCH ×2 (09:48→21:32)
[2021-03-12] MEDS: OXYBUTYNIN 5 MG TABLET PO SCH (09:48)
[2021-03-12] MEDS: GABAPENTIN 100 MG CAPSULE PO SCH ×2 (09:48→21:32)
[2021-03-12] MEDS: amLODIPine 10 MG TABLET PO SCH (09:49)
[2021-03-12 19:07] LABS: Bilirubin,Urine Negative (Negative); Blood, Urine Negative (Negative); Glucose,Urine (UA) Negative (Negative); Hyaline Casts,Urine 3 /LPF (0-3); Ketones,Urine Negative (Negative); Mucus,Urine Occasional /LPF (Occasional); Nitrite,Urine Negative (Negative); Protein,Urine Negative; RBC,Urine 2 /HPF (0-4); Squamous Epithelial Cell,Urine Occasional /HPF (0-10); Urine Appearance CLEAR (Clear); Urine Color Yellow (Yellow); Urine Specific Gravity 1.009 (1.001-1.035); Urine Urobilinogen < 2.0 EU/DL (0.2-1.0)
[2021-03-13] MEDS: LEVALBUTEROL 0.63 MG/3 ML NEB RESP TX SCH ×4 (00:38→19:46)
[2021-03-13 05:57] LABS: Basophils % 0.3 % (0.0-0.8); Eosinophils # 0.3 10*3/uL (0.0-0.87); Eosinophils % 2.6 % (0.00-10.9); Hemoglobin 11.3 GM/DL (12.0-16.0); Immature Granulocytes % 0.7 %; Immature Granulocytes Absolute 0.08 #; Lymphocytes # 1.6 10*3/uL (1.4-4.0); Lymphocytes % 14.8 % (21.3-54.2); Mean Corpuscular HGB Conc 32.3 GM/DL (32-36); Mean Corpuscular Volume 90.9 FL (87-102); Mean Platelet Volume 9.2 FL (9.6-12.0); Monocytes % 9.2 % (1.7-12.7); Neutrophils % 72.4 % (38.7-73.9); Platelet Count 308 T/CUMM (130-400); Red Blood Count 3.85 MC/CUMM (3.8-5.5); Red Cell Distribution Width 15.2 % (9.3-17.3); White Blood Count 10.7 T/CUMM (4-12)
[2021-03-13 06:15] LABS: Calcium 8.4 MG/DL (8.5-10.1); Osmolality,Calculated 283.7 MOS/KG (273-304)
[2021-03-13] MEDS: hydrALAZINE 25 MG TABLET PO SCH ×3 (09:42→21:42)
[2021-03-13] MEDS: LINEZOLID 600 MG TABLET PO SCH ×2 (09:42→21:42)
[2021-03-13] MEDS: ASPIRIN CHEW 81 MG TABLET PO SCH (09:42)
[2021-03-13] MEDS: ASCORBIC ACID 500 MG TABLET PO SCH ×2 (09:43→21:42)
[2021-03-13] MEDS: POTASSIUM CHLORIDE 20 MEQ TABLET PO SCH ×2 (09:43→21:42)
[2021-03-13] MEDS: methylPREDNISolone SOD SUC 40 MG/1 ML VIAL IM SCH ×2 (09:44→21:43)
[2021-03-13] MEDS: PANTOPRAZOLE 40 MG TABLET PO SCH (09:44)
[2021-03-13] MEDS: GABAPENTIN 100 MG CAPSULE PO SCH ×2 (09:44→21:42)
[2021-03-13] MEDS: OXYBUTYNIN 5 MG TABLET PO SCH (09:44)
[2021-03-13] MEDS: amLODIPine 10 MG TABLET PO SCH (09:47)
[2021-03-13] MEDS: SOTALOL 80 MG TABLET PO SCH ×2 (09:47→21:43)
[2021-03-13] MEDS: INSULIN REGULAR 100 UNIT/ML SUBCUT SCH ×4 (09:47→21:43)
[2021-03-13] MEDS: FUROSEMIDE 40 MG/4 ML VIAL IV SCH (10:20)
[2021-03-14] MEDS: LEVALBUTEROL 0.63 MG/3 ML NEB RESP TX SCH ×4 (01:09→20:00)
[2021-03-14 07:29] LABS: Basophils % 0.1 % (0.0-0.8); Hematocrit 39.4 VOL% (35.7-47.0); Hemoglobin 12.6 GM/DL (12.0-16.0); Immature Granulocytes % 0.8 %; Lymphocytes % 8.7 % (21.3-54.2); Mean Platelet Volume 9.5 FL (9.6-12.0); Monocytes % 2.9 % (1.7-12.7); Neutrophils % 87.5 % (38.7-73.9); Platelet Count 354 T/CUMM (130-400); Red Blood Count 4.38 MC/CUMM (3.8-5.5); Red Cell Distribution Width 14.9 % (9.3-17.3)
[2021-03-14 08:00] LABS: Calcium 8.4 MG/DL (8.5-10.1); Osmolality,Calculated 284.7 MOS/KG (273-304); Potassium 4.5 MMOL/L (3.5-5.1)
[2021-03-14] MEDS: LINEZOLID 600 MG TABLET PO SCH ×2 (08:58→20:58)
[2021-03-14] MEDS: ASCORBIC ACID 500 MG TABLET PO SCH ×2 (08:58→20:58)
[2021-03-14] MEDS: FUROSEMIDE 40 MG TABLET PO SCH (08:58)
[2021-03-14] MEDS: ASPIRIN CHEW 81 MG TABLET PO SCH (08:59)
[2021-03-14] MEDS: hydrALAZINE 25 MG TABLET PO SCH (08:59)
[2021-03-14] MEDS: POTASSIUM CHLORIDE 20 MEQ TABLET PO SCH ×2 (08:59→20:58)
[2021-03-14] MEDS: SOTALOL 80 MG TABLET PO SCH ×2 (08:59→21:43)
[2021-03-14] MEDS: GABAPENTIN 100 MG CAPSULE PO SCH ×2 (08:59→20:58)
[2021-03-14] MEDS: PANTOPRAZOLE 40 MG TABLET PO SCH (08:59)
[2021-03-14] MEDS: amLODIPine 10 MG TABLET PO SCH (08:59)
[2021-03-14] MEDS: OXYBUTYNIN 5 MG TABLET PO SCH (09:00)
[2021-03-14] MEDS: methylPREDNISolone SOD SUC 40 MG/1 ML VIAL IM SCH ×2 (09:00→20:57)
[2021-03-14] MEDS: INSULIN REGULAR 100 UNIT/ML SUBCUT SCH ×4 (09:54→20:57)
[2021-03-14] MEDS: CLORAZEPATE 3.75 MG TABLET PO PRN (16:58)
[2021-03-15] MEDS: INSULIN REGULAR 100 UNIT/ML SUBCUT SCH ×4 (09:15→21:50)
[2021-03-15] MEDS: ASPIRIN CHEW 81 MG TABLET PO SCH (09:20)
[2021-03-15] MEDS: PANTOPRAZOLE 40 MG TABLET PO SCH (09:20)
[2021-03-15] MEDS: FUROSEMIDE 40 MG TABLET PO SCH (09:21)
[2021-03-15] MEDS: amLODIPine 10 MG TABLET PO SCH (09:21)
[2021-03-15] MEDS: OXYBUTYNIN 5 MG TABLET PO SCH (09:22)
[2021-03-15] MEDS: GABAPENTIN 100 MG CAPSULE PO SCH ×2 (09:22→21:50)
[2021-03-15] MEDS: ASCORBIC ACID 500 MG TABLET PO SCH ×2 (09:23→21:50)
[2021-03-15] MEDS: methylPREDNISolone SOD SUC 40 MG/1 ML VIAL IM SCH (09:23)
[2021-03-15] MEDS: POTASSIUM CHLORIDE 20 MEQ TABLET PO SCH (09:25)
[2021-03-15] MEDS: SOTALOL 80 MG TABLET PO SCH ×2 (09:26→22:37)
[2021-03-15] MEDS: LINEZOLID 600 MG TABLET PO SCH ×2 (09:26→21:50)
[2021-03-15] MEDS: LEVALBUTEROL 0.63 MG/3 ML NEB RESP TX SCH ×4 (13:05→20:50)
[2021-03-15 13:17] LABS: Basophils % 0.1 % (0.0-0.8); Hematocrit 35.8 VOL% (35.7-47.0); Hemoglobin 11.5 GM/DL (12.0-16.0); Immature Granulocytes % 1.2 %; Immature Granulocytes Absolute 0.15 #; Lymphocytes # 0.9 10*3/uL (1.4-4.0); Lymphocytes % 7.3 % (21.3-54.2); Mean Corpuscular HGB Conc 32.1 GM/DL (32-36); Mean Corpuscular Volume 90.2 FL (87-102); Mean Platelet Volume 9.6 FL (9.6-12.0); Monocytes % 2.7 % (1.7-12.7); Neutrophils % 88.7 % (38.7-73.9); Platelet Count 311 T/CUMM (130-400); Red Blood Count 3.97 MC/CUMM (3.8-5.5); Red Cell Distribution Width 15.3 % (9.3-17.3); White Blood Count 12.8 T/CUMM (4-12)
[2021-03-15 13:56] LABS: Calcium 8.6 MG/DL (8.5-10.1); Osmolality,Calculated 281.2 MOS/KG (273-304); Potassium 4.8 MMOL/L (3.5-5.1)
[2021-03-16] MEDS: LEVALBUTEROL 0.63 MG/3 ML NEB RESP TX SCH ×4 (01:09→19:47)
[2021-03-16 05:19] LABS: Basophils % 0.2 % (0.0-0.8); Eosinophils # 0.2 10*3/uL (0.0-0.87); Eosinophils % 2.1 % (0.00-10.9); Hematocrit 39.6 VOL% (35.7-47.0); Hemoglobin 12.7 GM/DL (12.0-16.0); Immature Granulocytes Absolute 0.11 #; Lymphocytes # 2.3 10*3/uL (1.4-4.0); Lymphocytes % 20.8 % (21.3-54.2); Mean Corpuscular HGB Conc 32.1 GM/DL (32-36); Mean Corpuscular Volume 92.1 FL (87-102); Mean Platelet Volume 9.4 FL (9.6-12.0); Monocytes % 7.7 % (1.7-12.7); Neutrophils % 68.2 % (38.7-73.9); Platelet Count 298 T/CUMM (130-400); Red Cell Distribution Width 15.6 % (9.3-17.3); White Blood Count 11.1 T/CUMM (4-12)
[2021-03-16 05:47] LABS: Calcium 8.4 MG/DL (8.5-10.1); Osmolality,Calculated 278.1 MOS/KG (273-304); Potassium 4.3 MMOL/L (3.5-5.1)
[2021-03-16] MEDS: INSULIN REGULAR 100 UNIT/ML SUBCUT SCH ×4 (08:58→21:26)
[2021-03-16] MEDS: PANTOPRAZOLE 40 MG TABLET PO SCH (08:59)
[2021-03-16] MEDS: amLODIPine 10 MG TABLET PO SCH (08:59)
[2021-03-16] MEDS: LINEZOLID 600 MG TABLET PO SCH ×2 (08:59→21:26)
[2021-03-16] MEDS: POTASSIUM CHLORIDE 20 MEQ TABLET PO SCH (08:59)
[2021-03-16] MEDS: ASCORBIC ACID 500 MG TABLET PO SCH ×2 (08:59→21:26)
[2021-03-16] MEDS: GABAPENTIN 100 MG CAPSULE PO SCH ×2 (08:59→21:26)
[2021-03-16] MEDS: methylPREDNISolone SOD SUC 40 MG/1 ML VIAL IV SCH (09:00)
[2021-03-16] MEDS: ASPIRIN CHEW 81 MG TABLET PO SCH (09:00)
[2021-03-16] MEDS: FUROSEMIDE 40 MG TABLET PO SCH (09:00)
[2021-03-16] MEDS: OXYBUTYNIN 5 MG TABLET PO SCH (09:00)
[2021-03-16] MEDS: SOTALOL 80 MG TABLET PO SCH ×2 (09:00→21:26)
[2021-03-17] MEDS: LEVALBUTEROL 0.63 MG/3 ML NEB RESP TX SCH ×4 (01:10→19:27)
[2021-03-17 05:12] LABS: Calcium 8.3 MG/DL (8.5-10.1)
[2021-03-17] MEDS: INSULIN REGULAR 100 UNIT/ML SUBCUT SCH ×4 (09:03→21:13)
[2021-03-17] MEDS: PANTOPRAZOLE 40 MG TABLET PO SCH (09:04)
[2021-03-17] MEDS: LINEZOLID 600 MG TABLET PO SCH ×2 (09:04→21:15)
[2021-03-17] MEDS: ASPIRIN CHEW 81 MG TABLET PO SCH (09:04)
[2021-03-17] MEDS: amLODIPine 10 MG TABLET PO SCH (09:04)
[2021-03-17] MEDS: FUROSEMIDE 40 MG TABLET PO SCH (09:04)
[2021-03-17] MEDS: GABAPENTIN 100 MG CAPSULE PO SCH ×2 (09:04→21:15)
[2021-03-17] MEDS: SOTALOL 80 MG TABLET PO SCH ×2 (09:04→21:13)
[2021-03-17] MEDS: OXYBUTYNIN 5 MG TABLET PO SCH (09:05)
[2021-03-17] MEDS: ASCORBIC ACID 500 MG TABLET PO SCH ×2 (09:05→21:15)
[2021-03-17] MEDS: POTASSIUM CHLORIDE 20 MEQ TABLET PO SCH (09:05)
[2021-03-17] MEDS: methylPREDNISolone SOD SUC 40 MG/1 ML VIAL IV SCH (09:05)
[2021-03-17] MEDS ORDERED: CLORAZEPATE 3.75 MG TABLET PO PRN (21:23)
[2021-03-17] MEDS ORDERED: ZALEPLON 5 MG CAPSULE PO PRN (21:24)
[2021-03-18] MEDS: LEVALBUTEROL 0.63 MG/3 ML NEB RESP TX SCH ×3 (00:17→13:07)
[2021-03-18 04:48] LABS: Basophils % 0.2 % (0.0-0.8); Eosinophils % 0.3 % (0.00-10.9); Hematocrit 36.6 VOL% (35.7-47.0); Immature Granulocytes % 0.4 %; Immature Granulocytes Absolute 0.04 #; Lymphocytes # 1.9 10*3/uL (1.4-4.0); Lymphocytes % 18.3 % (21.3-54.2); Mean Corpuscular HGB Conc 32.8 GM/DL (32-36); Mean Corpuscular Volume 90.6 FL (87-102); Mean Platelet Volume 9.9 FL (9.6-12.0); Monocytes % 7.4 % (1.7-12.7); Neutrophils % 73.4 % (38.7-73.9); Platelet Count 241 T/CUMM (130-400); Red Blood Count 4.04 MC/CUMM (3.8-5.5); Red Cell Distribution Width 15.2 % (9.3-17.3); White Blood Count 10.1 T/CUMM (4-12)
[2021-03-18 05:38] LABS: Calcium 8.1 MG/DL (8.5-10.1); Osmolality,Calculated 279.1 MOS/KG (273-304); Potassium 4.3 MMOL/L (3.5-5.1)
[2021-03-18] MEDS: ASCORBIC ACID 500 MG TABLET PO SCH (08:31)
[2021-03-18] MEDS: LINEZOLID 600 MG TABLET PO SCH (08:31)
[2021-03-18] MEDS: ASPIRIN CHEW 81 MG TABLET PO SCH (08:31)
[2021-03-18] MEDS: amLODIPine 10 MG TABLET PO SCH (08:31)
[2021-03-18] MEDS: PANTOPRAZOLE 40 MG TABLET PO SCH (08:32)
[2021-03-18] MEDS: SOTALOL 80 MG TABLET PO SCH (08:32)
[2021-03-18] MEDS: GABAPENTIN 100 MG CAPSULE PO SCH (08:32)
[2021-03-18] MEDS: OXYBUTYNIN 5 MG TABLET PO SCH (08:32)
[2021-03-18] MEDS: POTASSIUM CHLORIDE 20 MEQ TABLET PO SCH (08:32)
[2021-03-18] MEDS: INSULIN REGULAR 100 UNIT/ML SUBCUT SCH ×2 (08:36→13:19)
[2021-03-18] MEDS ORDERED: predniSONE 5 MG TABLET PO SCH (09:00)
[2021-03-18] MEDS: FUROSEMIDE 40 MG TABLET PO SCH (09:20)
[2021-03-18] MEDS ORDERED: DOCUSATE SODIUM 100 MG CAPSULE PO ONE (11:09)
[2021-03-18] MEDS ORDERED: DOCUSATE SODIUM 100 MG CAPSULE PO PRN (11:09)
[2021-03-18] MEDS ORDERED: LACTULOSE 20 GM/30 ML UDCUP PO ONE (11:09)
[2021-03-18 12:33] VITALS: BP 162/52
== END 2021-03-18 16:07 | disposition swing bed (61) | DRG 280 ==
LOC: EDBD → EDUNIT# → N.ED 15:51 → N.EDINP 15:51 → N.TELES 19:13
PROC: IRTHORA (2021-03-17 10:40)